=== PATIENT | female | born 1990 | race Caucasian/White ===

== ENCOUNTER 2017-06-09 04:08 | Emergency (ER) | payer BC ==
[2017-06-09 04:15] VITALS: RESP 18
[2017-06-09] MEDS ORDERED: AMOXIC-POT CLAV 875MG STARTER 2 EACH TABLET PO STA (04:52)
[2017-06-09] MEDS ORDERED: ACET/COD 300 MG/30 MG STARTER PACK 6 TAB BTL PO STA (04:53)
--- NOTE | 2017-06-09 04:54 | ED ---
ENT HPI - General Chief complaint: ENT Stated complaint: Sore throat Time Seen by Provider: 06/09/17 04:35 Source: patient Mode of arrival: ambulatory Limitations: no limitations - History of Present Illness Initial comments: This patient is a 26-year-old woman with history of about 3 days of sore throat. She states that it feels worse on the left. As aching, it has become severe, and is made worse when she attempts to swallow. She has not really found any relieving factors. Patient denies any associated symptoms such as cough, fever or chills. She states that the pain is now radiating towards her left ear. MD complaint: sore throat Onset/Timin -: days(s) Location: throat Severity: severe Quality: aching Consistency: constant Improves with: none Worsens with: swallowing Associated Symptoms: sore throat - Related Data Home Medications Medication Instructions Recorded Confirmed DULoxetine HCL [Cymbalta] 60 mg PO DAILY 06/09/17 06/09/17 Gabapentin [Neurontin] 400 mg PO DAILY PRN 06/09/17 06/09/17 LORazepam [Ativan] 1 mg PO Q8H PRN 06/09/17 06/09/17 Previous Rx's Medication Instructions Recorded Amoxicillin 875 mg PO Q12HR #14 tablet 06/09/17 Fluconazole [Diflucan] 150 mg PO ONCE #1 tab 06/09/17 Naproxen [Naprosyn] 500 mg PO Q12HR #20 tab 06/09/17 Allergies Allergy/AdvReac Type Severity Reaction Status Date / Time No Known Allergies Allergy Verified 06/09/17 16:10 Review of Systems ROS Statement: Those systems with pertinent positive or pertinent negative responses have been documented in the HPI. ROS Other: All systems not noted in ROS Statement are negative. Constitutional: Denies: fever, chills Eyes: Denies: eye pain, vision change ENT: Reports: ear pain, throat pain. Denies: hearing loss, congestion Respiratory: Denies: cough, dyspnea, wheezes Cardiovascular: Denies: palpitations Neurological: Denies: headache Past Medical History Past Medical History: Fibromyalgia History of Any Multi-Drug Resistant Organisms: None Reported Past Surgical History: Section Past Psychological History: Depression Smoking Status: Light tobacco smoker Past Alcohol Use History: None Reported Past Drug Use History: None Reported General Exam Limitations: no limitations General appearance: alert, in no apparent distress, obese Head exam: Present: atraumatic, normocephalic Eye exam: Present: normal appearance. Absent: scleral icterus, conjunctival injection ENT exam: Present: TM's normal bilaterally, normal external ear exam, other ( There is injection of the pharynx. There is some mild swelling to the left of the uvula. Uvula is midline without edema.) Neck exam: Present: normal inspection, tenderness, full ROM, lymphadenopathy. Absent: meningismus Respiratory exam: Present: normal lung sounds bilaterally. Absent: respiratory distress, wheezes, rales, rhonchi, stridor Cardiovascular Exam: Present: regular rate, normal rhythm, normal heart sounds. Absent: systolic murmur, diastolic murmur, rubs, gallop GI/Abdominal exam: Present: soft. Absent: distended, tenderness, guarding, rebound, mass Neurological exam: Present: alert Skin exam: Present: warm, dry, intact, normal color. Absent: rash Course Vital Signs 06/09/17 06/09/17 04:12 05:14 Temperature 98.1 F 97.7 F Pulse Rate 83 76 Respiratory 18 18 Rate Blood Pressure 157/73 133/78 O2 Sat by Pulse 99 96 Oximetry Medical Decision Making - Lab Data Lab Results 06/09/17 Range/Units 04:44 Group A Strep Rapid Negative (Negative) Disposition Clinical Impression: Peritonsillar abscess, Pharyngitis Disposition: HOME SELF-CARE Condition: Good Instructions: Pharyngitis (ED), Peritonsillar Abscess (ED) Prescriptions: Amoxicillin 875 mg PO Q12HR #14 tablet Fluconazole [Diflucan] 150 mg PO ONCE #1 tab Referrals: Devante Gee MD [Primary Care Provider] - 1-2 days Mega Grove MD [STAFF PHYSICIAN] - 1-2 days
[2017-06-09 05:15] VITALS: BP 133/78; PULSE 76; TEMP 97.7
== END 2017-06-09 05:14 | disposition home or self-care (01) ==
LOC: EC 04:08
DX: J36 Peritonsillar abscess (principal); H92.02 Otalgia, left ear; M79.7 Fibromyalgia; F32.9 Major depressive disorder, single episode, unspecified; E66.9 Obesity, unspecified; F17.200 Nicotine dependence, unspecified, uncomplicated; Z68.38 Body mass index [BMI] 38.0-38.9, adult
CPT/HCPCS: 87081; 87430; 99283

== ENCOUNTER 2017-06-09 15:49 | Emergency (ER) | payer BC ==
[2017-06-09 15:53] VITALS: BP 138/76; PULSE 105; RESP 18; TEMP 97.9
[2017-06-09] MEDS ORDERED: methylPREDNISolone SOD SUCCI 125 MG/2 ML VIAL IM STA (16:03)
[2017-06-09] MEDS ORDERED: KETOROLAC 60 MG/2 ML VIAL IM STA (16:03)
--- NOTE | 2017-06-09 16:08 | ED ---
General Adult HPI - General Chief complaint: ENT Stated complaint: Throat pain, abscess on tonsils Time Seen by Provider: 06/09/17 15:57 Source: patient, RN notes reviewed Mode of arrival: ambulatory Limitations: no limitations - History of Present Illness Initial comments: 26 yo female presents to the ER with cc of throat pain. Patient states she was started on amoxicillin and tylenol 3 for a peritonsillar abscess. Patient morning, it is not helping her with her pain. patient states that she just has pain to the toe. Patient states the fever and chills are gone. Patient states that her throat still hurts she denies any increased swelling. Patient was concerned due to her symptoms and increased pain so she thought that she should be evaluated.Patient denies any recent fever, chills, shortness of breath, chest pain, back pain, abdominal pain, nausea vomiting, numbness or tingling, dysuria or hematuria, constipation or diarrhea, headaches or visual changes, or any other current symptoms. - Related Data Home Medications Medication Instructions Recorded Confirmed DULoxetine HCL [Cymbalta] 60 mg PO DAILY 06/09/17 06/09/17 Gabapentin [Neurontin] 400 mg PO DAILY 06/09/17 06/09/17 LORazepam [Ativan] 0.5 mg PO 06/09/17 Previous Rx's Medication Instructions Recorded Amoxicillin 875 mg PO Q12HR #14 tablet 06/09/17 Fluconazole [Diflucan] 150 mg PO ONCE #1 tab 06/09/17 Naproxen [Naprosyn] 500 mg PO Q12HR #20 tab 06/09/17 Allergies Allergy/AdvReac Type Severity Reaction Status Date / Time No Known Allergies Allergy Verified 06/09/17 15:53 Review of Systems ROS Statement: Those systems with pertinent positive or pertinent negative responses have been documented in the HPI. ROS Other: All systems not noted in ROS Statement are negative. Past Medical History Past Medical History: Fibromyalgia History of Any Multi-Drug Resistant Organisms: None Reported Past Surgical History: Section Past Psychological History: Depression Smoking Status: Light tobacco smoker Past Alcohol Use History: None Reported Past Drug Use History: None Reported General Exam - General Exam Comments Initial Comments: General exam: Alert, active, comfortable in no apparent distress Head: Normocephalic Eyes: Normal reaction of pupils, equal size, normal range of extraocular motion Ears: normal external ear canals. Nose: clear with pink turbinates Throat: erythema to the left peritonsillar, noexudates with normal sized tonsils Neck: no masses, no nuchal rigidity Chest: no chest wall deformity Lungs: equal air entry with no crackles or wheeze CVS: S1 and S2 normal with no audible mumurs, regular rhythm Abdomen: no hepatosplenomegaly, normal bowel sounds, no guarding or rigidity Spine: no scoliosis or deformity Skin: no rashes Neurological: No focal deficits, tone is normal in all 4 extremities Limitations: no limitations Course Vital Signs 06/09/17 15:51 Temperature 97.9 F Pulse Rate 105 H Respiratory 18 Rate Blood Pressure 138/76 O2 Sat by Pulse 100 Oximetry Medical Decision Making - Medical Decision Making 26-year-old female presents for left peritonsillar abscess. This time we did give her dose of steroids as well as anti-inflammatories. We'll start her on naproxen for home. We did discuss continued follow-up with Dr. felipe parameters all patient's questions. She stated that she understood and she plan. All questions have been answered. She will be discharged. Disposition Clinical Impression: Peritonsillar abscess Disposition: HOME SELF-CARE Condition: Stable Instructions: Pharyngitis (ED) Additional Instructions: Please use medication as discussed. Please follow up with family doctor if symptoms have not improved over the next two days. Please return to the emergency room if your symptoms increase or worsen or for any other concerns. Prescriptions: Naproxen [Naprosyn] 500 mg PO Q12HR #20 tab Referrals: Devante Gee MD [Primary Care Provider] - 1-2 days Time of Disposition: 16:07
== END 2017-06-09 16:18 | disposition home or self-care (01) ==
LOC: EC 15:49
DX: J36 Peritonsillar abscess (principal); M79.7 Fibromyalgia; F32.9 Major depressive disorder, single episode, unspecified; F17.200 Nicotine dependence, unspecified, uncomplicated; Z79.899 Other long term (current) drug therapy
CPT/HCPCS: 99282; 96372 ×2; J2930; J1885

== ENCOUNTER → 2017-06-10 | Outpatient (CLI) | payer BC ==
--- NOTE | 2017-06-10 20:06 | CT ---
EXAMINATION TYPE: CT soft tissue neck w con DATE OF EXAM: 06/10/2017 HISTORY: left side abscess/swelling COMPARISON: NONE CT DLP: 527.5 mGycm. Automated Exposure Control for Dose Reduction was Utilized. TECHNIQUE: CT scan of the neck is performed with IV Contrast, patient injected with 100 mL of Omnipa que 300, axial images are obtained, coronal and sagittal reformatted images are reviewed. FINDINGS: Airway: Within the lateral aspect of the left parapharyngeal tonsil there is a 1.6 x 1.7 cm lesion wi th a thick rim that is centrally low attenuated with Hounsfield units suggestive of complex fluid and phlegmonous debris. There is mild impression upon the airway with narrowing of the pharynx at this l evel. Airway posterior to this is patent but narrowed measuring 8 mm. Parotid/submandibular glands: No gross abnormality seen. Carotid/Vascular Structures: No evidence of stenosis. Osseous Structures: Osseous structures are intact. Other: Adenopathy is seen within the bilateral cervical chains with nodes measuring up to 1.2 cm on t he left and 1.0 cm on the right. No fluid is seen within the prevertebral space. IMPRESSION: 1. 1.6 x 1.7 cm left peritonsillar abscess containing small amounts of fluid and predominantly phlegm onous changes, narrowing the airway although the airway remains patent. 2. Bilateral cervical chain adenopathy, left greater than right that is likely reactive. Ordering physician's office was closed and no on-call number was provided. The ordering physician coral l be contacted as soon as the office opens on 06/11/2017.
== END | disposition home or self-care (01) ==
LOC: RADCTMAIN 15:36
PROVIDERS: ATTEND Otolaryngology
DX: J36 Peritonsillar abscess (principal)
CPT/HCPCS: 70491; Q9967

== ENCOUNTER 2017-06-11 14:51 | Emergency (ER) | payer BC ==
[2017-06-11] MEDS ORDERED: HYDROmorphone 1 MG/ML 1 ML SYRINGE IVP STA (15:05)
[2017-06-11 15:21] VITALS: BP 139/92; PULSE 84; RESP 18; TEMP 99.3
--- NOTE | 2017-06-12 18:24 | OP ---
OPERATIVE REPORT Date of Surgery: DATE OF SURGERY: 06/11/2017 PREOPERATIVE DIAGNOSIS: Left peritonsillar abscess. POSTOPERATIVE DIAGNOSIS: Left peritonsillar abscess. ANESTHESIA: Local with Hurricaine spray. OPERATIVE PROCEDURE: Incision and drainage of left peritonsillar abscess using a 10 mL syringe and an 18- gauge needle. SURGEON: Dr. Grove. COMPLICATIONS: None. ESTIMATED BLOOD LOSS: Less than 5 mL. OPERATIVE PROCEDURE: The patient was placed on the patient bed in the emergency room in the sitting position. Next, the patient's posterior pharynx was generously sprayed with Hurricaine spray to achieve topical anesthesia. Next, using the tongue depressor to obtain maximum view of the area, inspection revealed that there was minimal soft tissue swelling of the left peritonsillar area. Therefore, using the 10 mL syringe initially with an 18-gauge needle and subsequently with a 21-gauge needle attached to it, the needle was inserted through the mucous membrane into the peritonsillar tissue in an area group home between the uvula and the rear molars in the usual and customary fashion. Multiple punctures were carried out and a total of approximately 3 mL of bloody purulent material was obtained. It is to be noted on the patient's CT scan that the abscess pocket was noted to be small. After inserting the syringe and withdrawing the plunger of the syringe as the needle was withdrawn from the soft tissue at six different sites, the procedure was terminated. There were no intraoperative complications. The patient tolerated procedure well. The patient will be given 1 g of Rocephin intravenously prior to her discharge from the emergency room. She is currently on Augmentin 875 mg tablets p.o. b.i.d., #20 and she will continue taking this. I will see her on a followup visit in my office next week after . MMODL / IJN: [id number] /
--- NOTE | 2017-06-13 02:49 | CDI ---
Documentation Clarification OP Dear Sulaiman Pemberton Please do addendum to ED report for missing whole ED notes. Thank you, Rah Soto Ticket Maker If you have any questions, please contact [employer] at [phone] [facility]
== END 2017-06-11 16:00 | disposition home or self-care (01) ==
LOC: EC 14:51 → EDSTATUS 14:57 → EC 16:00
DX: J36 Peritonsillar abscess (principal)
CPT/HCPCS: 42700; 96365; J0696; J1170

== ENCOUNTER → 2017-07-08 | Outpatient (CLI) | payer BC ==
--- NOTE | 2017-07-08 16:57 | CT ---
EXAMINATION TYPE: CT soft tissue neck w con DATE OF EXAM: 07/08/2017 4:48 PM COMPARISON: 06/10/2017 HISTORY: Follow-up left peritonsillar abscess. CT DLP: 475.60 mGycm Automated exposure control for dose reduction was used. CONTRAST: CT scan of the neck is performed following with IV Contrast, patient injected with 100 mL of Omnipaqu e 300. Axial images are obtained, coronal and sagittal reformatted images are reviewed. FINDINGS: There is normal branching pattern of the great vessels on the aortic arch. I see no mediastinal adeno leonardo. Thyroid gland is symmetric. There is normal contrast opacification of the carotid arteries and jugula r veins. Epiglottis appears normal. There is mild bilateral enlargement of the tonsils. There is a sm all mucus retention cyst in the sphenoid sinus. I see no focal bone destruction. Subglottic trachea a ppears normal. There is no evidence of a pharyngeal mass. IMPRESSION: Mild hypertrophy of the tonsils. There is clearing of the enlarged hypodense area in the left tonsil compared to last CT scan. I do not see evidence of an abscess or phlegmon.
== END ==
LOC: RADCTMAIN 16:27
PROVIDERS: ATTEND Otolaryngology
DX: J35.8 Other chronic diseases of tonsils and adenoids (principal)
CPT/HCPCS: 70491; Q9967

== ENCOUNTER → 2017-11-06 | Outpatient (CLI) | payer OTHER ==
--- NOTE | 2017-11-06 17:00 | XR ---
EXAMINATION TYPE: XR chest 2V DATE OF EXAM: 11/06/2017 COMPARISON: NONE HISTORY: Chest pain TECHNIQUE: Frontal and lateral views of the chest are obtained. FINDINGS: There is no focal air space opacity. No evidence for pneumothorax. No pleural effusion. The cardiac silhouette size is within normal limits. The osseous structures are grossly intact. IMPRESSION: 1. No acute cardiopulmonary process.
== END | disposition home or self-care (01) ==
LOC: RADXRMAIN 15:57
PROVIDERS: ATTEND Family Medicine
DX: R05 Cough (principal)
CPT/HCPCS: 71046

== ENCOUNTER 2018-01-02 09:31 | Day surgery (SDC) | payer OTHER ==
[2017-12-31 10:39] VITALS: BMI 40.3
[~2018-01-02 09:31] MED LIST: LACTATED RINGERS 1,000 ML IV SCH
[2018-01-02 10:30] VITALS: RESP 18; TEMP 97.6
[2018-01-02] MEDS ORDERED: LIDOCAINE 1% 20 ML VIAL (10MG/ML) FOR IV START INTRADERMA ONE (10:31)
[2018-01-02] MEDS ORDERED: PROPOFOL 10 MG/ML 20 ML VIAL IV ONE (10:42)
[2018-01-02] MEDS ORDERED: LIDOCAINE 1% INJ 10MG/ML (20 ML MDV) ONE (10:42)
[2018-01-02] MEDS ORDERED: fentaNYL (PF) 50 MCG/ML 2 ML AMP ONE (10:42)
--- NOTE | 2018-01-02 10:47 | P.GSHP ---
History of Present Illness H&P Date: 01/02/18 Chief Complaint: GERD This a 18-year-old female for from Dr. Jose Sánchez. Patient presents today for EGD. She's had issues with GERD. Past Medical History Past Medical History: Fibromyalgia, GERD/Reflux, Sleep Apnea/CPAP/BIPAP Additional Past Medical History / Comment(s): no cpap used, carpal tunnel [place] wrists History of Any Multi-Drug Resistant Organisms: None Reported Past Surgical History: Section, Orthopedic Surgery Additional Past Surgical History / Comment(s): tendon surgery left foot Past Anesthesia/Blood Transfusion Reactions: No Reported Reaction Smoking Status: Current every day smoker - Past Family History Mother Family Medical History: No Reported History Medications and Allergies Home Medications Medication Instructions Recorded Confirmed Type DULoxetine HCL [Cymbalta] 60 mg PO DAILY 06/09/17 01/02/18 History ALPRAZolam [Xanax] 0.25 mg PO DAILY PRN 12/31/17 01/02/18 History Hydrocodone/Acetaminophen [[place] 1 tab PO BID 12/31/17 01/02/18 History 7.5-325] Allergies Allergy/AdvReac Type Severity Reaction Status Date / Time No Known Allergies Allergy Verified 01/02/18 10:28 Surgical - Exam Vital Signs Temp Pulse Resp BP Pulse Ox 97.6 F 75 18 133/68 98 01/02/18 10:29 01/02/18 10:29 01/02/18 10:29 01/02/18 10:29 01/02/18 10:29 - General well developed, no distress - Eyes PERRL - ENT normal pinna - Neck no masses - Respiratory normal expansion - Cardiovascular Rhythm: regular - Abdomen Abdomen: soft, non tender Assessment and Plan Assessment: GERD. We'll perform EGD.
--- NOTE | 2018-01-02 10:53 | P.OP ---
Date of Procedure: 01/02/18 Preoperative Diagnosis: GERD Postoperative Diagnosis: Antral gastritis No N [place] hernia Esophagitis Procedure(s) Performed: EGD Anesthesia: MAC Surgeon: Alejandro Desouza Pathology: other (Antrum, esophagus) Condition: stable Disposition: PACU Description of Procedure: Patient's placed on the endoscopy table in the lateral position. She received IV sedation. The gastroscope placed oropharynx passed in the esophagus there was linear erosions noted at the GE junction. The scope was then placed and stomach and through the pylorus. The first and second portion of the duodenum appeared normal. Scope was then brought back the antrum and this appeared mildly inflamed. A biopsies performed. The scope was then retroflexed and the remainder of the stomach appeared normal. There was no hiatal hernia. The GE junction was at 40 cm. The distal esophagus appeared inflamed and a biopsies performed. The proximal esophagus appeared normal. Scope was withdrawn for patient.
[2018-01-02 11:14] VITALS: BP 120/79; PULSE 66
== END 2018-01-02 11:25 | disposition home or self-care (01) ==
LOC: ORWHC2ENDO 09:31
PROVIDERS: ATTEND Surgery
DX: K21.0 Gastro-esophageal reflux disease with esophagitis (principal); K29.50 Unspecified chronic gastritis without bleeding; F32.9 Major depressive disorder, single episode, unspecified; F41.9 Anxiety disorder, unspecified; G47.30 Sleep apnea, unspecified; F17.200 Nicotine dependence, unspecified, uncomplicated; M79.7 Fibromyalgia; Z79.899 Other long term (current) drug therapy; Z79.891 Long term (current) use of opiate analgesic
CPT/HCPCS: 81025; 88305; 43239; J2001; J3010; J2704

== ENCOUNTER → 2019-10-19 | Outpatient (CLI) | payer OTHER ==
--- NOTE | 2019-10-19 11:05 | XR ---
EXAMINATION TYPE: XR chest 2V DATE OF EXAM: 10/19/2019 COMPARISON: 11/06/2017 TECHNIQUE: PA and lateral views submitted. HISTORY: Cough FINDINGS: The lungs are clear and there is no pneumothorax, pleural effusion, or focal pneumonia. No overt fa ilure. Biapical pleural thickening. Hypertrophic change of the spine. Chronic appearing mild wedge de formity in the midthoracic spine stable from prior exam. IMPRESSION: 1. No acute process.
== END | disposition home or self-care (01) ==
LOC: RADXRMAIN 10:42
PROVIDERS: ATTEND Family Medicine
DX: R05 Cough (principal)
CPT/HCPCS: 71046

== ENCOUNTER → 2019-10-21 | Outpatient (CLI) | payer OTHER ==
--- NOTE | 2019-10-21 09:09 | CT ---
EXAMINATION TYPE: CT abdomen pelvis wo con DATE OF EXAM: 10/21/2019 HISTORY: Abdominal and pelvic pain not further specified per order. Burning sharp pain into lower abd omen just under belly button for almost one week per patient. CT DLP: 857.9 mGycm. Automated Exposure Control for Dose Reduction was Utilized. TECHNIQUE: CT scan of the abdomen and pelvis is performed without oral or IV contrast. COMPARISON: NONE FINDINGS: Within the limitations of a non-contrast study, the following observations are made. LUNG BASES: No significant abnormality is appreciated. LIVER/GB: Somewhat contracted gallbladder incidentally noted. PANCREAS: No significant abnormality is seen. SPLEEN: No significant abnormality is seen. ADRENALS: No significant abnormality is seen. KIDNEYS: Bilateral nephrolithiasis. There are 3-4 small calculi scattered throughout the right kidne y measuring up to 5-6 mm long axis coronal image 55. There are 2 calculi scattered throughout the lef t kidney with largest mid to lower pole level measuring 4 x 5 mm more rounded in shape and coronal im age 52. No hydronephrosis or obstructing ureteral calculi. No intraluminal calculi poorly distended b ladder. BOWEL: Slightly suboptimal evaluation of bowel without enteric contrast. No suspicious small or large bowel dilatation is present. Appendix appears within normal limits seen extending medially coronal i mage 44. GENITAL ORGANS: Anteverted uterus. Trace free fluid pelvic cul-de-sac axial image 74 is nonspecific. Both ovaries normal in size right slightly larger on axial image 74 and the adnexa. LYMPH NODES: No greater than 1cm abdominal or pelvic lymph nodes are appreciated. OSSEOUS STRUCTURES: No significant abnormality is seen. Other: Small to tiny umbilical hernia contains fat sagittal image 60 and axial image 49. There is pe rhaps small degree of fat stranding along superior aspect seen best on sagittal images 59 through 61. No additional suspicious ventral wall hernia. IMPRESSION: 1. Bilateral renal calculi without hydronephrosis or obstructing ureteral calculi seen bilaterally. 2. Small to tiny umbilical hernia containing fat with perhaps mild fat stranding could reflect inflam mation or fatty ischemia and may cause patient's symptoms.
== END | disposition home or self-care (01) ==
LOC: RADCTMAIN 08:30
PROVIDERS: ATTEND Family Medicine
DX: N20.0 Calculus of kidney (principal); K42.9 Umbilical hernia without obstruction or gangrene
CPT/HCPCS: 74176

== ENCOUNTER 2020-12-24 12:36 | Emergency (ER) | payer OTHER ==
[2020-12-24 12:41] VITALS: BP 125/81; PULSE 105; RESP 16; TEMP 98
[2020-12-24] MEDS ORDERED: IBUPROFEN 600 MG TAB PO STA (12:48)
--- NOTE | 2020-12-24 12:57 | ED ---
General Adult HPI - General Chief complaint: Extremity Injury, Lower Stated complaint: L ankle injury Time Seen by Provider: 12/24/20 12:43 Source: patient, RN notes reviewed Mode of arrival: ambulatory Limitations: no limitations - History of Present Illness Initial comments: 30-year-old female presents to the emergency room for a chief complaint of left ankle pain. Patient states that yesterday she got new shoes that have an thicker sole than normal. Sates that she was walking down her stairs and the sole got caught on the edge of the stair. Patient fell down 3 stairs and injured her left ankle. States she is able to walk on it but it is painful. States it feels better with the shoe on because it provide support. Patient denies any pain in the foot. Patient denies hitting her head. Denies any back pain or neck pain. Denies taking blood thinners. Denies any other injuries.Patient has no other complaints at this time including shortness of breath, chest pain, abdominal pain, nausea or vomiting, headache, or visual changes. - Related Data Home Medications Medication Instructions Recorded Confirmed DULoxetine HCL [Cymbalta] 60 mg PO DAILY 06/09/17 01/02/18 ALPRAZolam [Xanax] 0.25 mg PO DAILY PRN 12/31/17 01/02/18 Hydrocodone/Acetaminophen [[place] 1 tab PO BID 12/31/17 01/02/18 7.5-325] Allergies Allergy/AdvReac Type Severity Reaction Status Date / Time No Known Allergies Allergy Verified 12/24/20 12:41 Review of Systems ROS Statement: Those systems with pertinent positive or pertinent negative responses have been documented in the HPI. ROS Other: All systems not noted in ROS Statement are negative. Past Medical History Past Medical History: Fibromyalgia, GERD/Reflux, Sleep Apnea/CPAP/BIPAP Additional Past Medical History / Comment(s): no cpap used, carpal tunnel [place] wrists History of Any Multi-Drug Resistant Organisms: None Reported Past Surgical History: Section, Orthopedic Surgery Additional Past Surgical History / Comment(s): tendon surgery left foot Past Anesthesia/Blood Transfusion Reactions: No Reported Reaction Past Psychological History: ADD/ADHD, Anxiety, Bipolar, Depression Smoking Status: Current every day smoker, Vaper Past Alcohol Use History: Rare Past Drug Use History: None Reported - Past Family History Mother Family Medical History: No Reported History General Exam Limitations: no limitations General appearance: alert, in no apparent distress Head exam: Present: atraumatic, normocephalic, normal inspection Eye exam: Present: normal appearance, PERRL, EOMI. Absent: scleral icterus, conjunctival injection, periorbital swelling ENT exam: Present: normal exam, mucous membranes moist Neck exam: Present: normal inspection. Absent: tenderness, meningismus, lymphadenopathy Respiratory exam: Present: normal lung sounds bilaterally. Absent: respiratory distress, wheezes, rales, rhonchi, stridor Cardiovascular Exam: Present: regular rate, normal rhythm, normal heart sounds. Absent: systolic murmur, diastolic murmur, rubs, gallop, clicks GI/Abdominal exam: Present: soft, normal bowel sounds. Absent: distended, tenderness, guarding, rebound, rigid Extremities exam: Present: tenderness (Tenderness to the lateral malleolus. No tenderness to the medial malleolus, fifth metatarsal, or navicular. Tenderness in the rest of the foot.), normal capillary refill (Capillary refill is 2 seconds, DP pulse 2+ left lower extremity), joint swelling (Edema noted of the lateral malleolus of the left ankle), other (Sensation intact left lower extremity). Absent: full ROM (Plantar and dorsi flexion intact in the left ankle however limited secondary to pain.), pedal edema, calf tenderness Course Vital Signs 12/24/20 12:39 Temperature 98 F Pulse Rate 105 H Respiratory 16 Rate Blood Pressure 125/81 O2 Sat by Pulse 97 Oximetry Procedures - Orthopedic Splinting/Casting Injury #1 Side: left Lower Extremity Immobilizer: [employer] Medical Decision Making - Medical Decision Making X-ray of the left foot and ankle showed no acute osseous abnormality however with the swelling, consider underlying ligamentous injury. Patient was placed in an Aircast. She was referred to orthopedics. Recommended Motrin and Tylenol as well as rice therapy. Disposition Clinical Impression: Ankle pain, left Disposition: HOME SELF-CARE Condition: Good Instructions (If sedation given, give patient instructions): Ankle Sprain (ED) Additional Instructions: Please take Motrin and Tylenol for pain. Please rest ice and elevate the left leg. Use brace as needed. Follow-up with orthopedics by calling tomorrow for an appointment. Return to the emergency room for any worsening symptoms. Is patient prescribed a controlled substance at d/c from ED?: No Referrals: Jose Marcos MD [Primary Care Provider] - 1-2 days Robe Rocha DO [Doctor of Osteopathic Medicine] - 1-2 days Time of Disposition: 13:44
--- NOTE | 2020-12-24 13:32 | XR ---
EXAMINATION TYPE: XR ankle complete 3 views LT, XR foot complete 3 views LT DATE OF EXAM: 12/24/2020 COMPARISON: NONE HISTORY: 30-year-old female with pain after fall FINDINGS: Ankle: Marked lateral and anterior soft tissue swelling. Anterior tibiotalar joint effusion is also noted. N o acute fracture, subluxation, or dislocation. Talar dome is intact. Subtalar joint align appears ali gned. Foot: Os peroneum. No acute fracture, subluxation, or dislocation. IMPRESSION (ankle and foot): Marked lateral and anterior soft tissue swelling at the ankle and underlying joint effusion. Consider underlying ligamentous injury. No acute osseous abnormality seen.
== END 2020-12-24 14:04 | disposition home or self-care (01) ==
LOC: EC 12:36 → SUPCPDRO 12:36 → EC 14:04
DX: S93.402A Sprain of unspecified ligament of left ankle, initial encounter (principal); F41.9 Anxiety disorder, unspecified; F31.9 Bipolar disorder, unspecified; F90.9 Attention-deficit hyperactivity disorder, unspecified type; F17.200 Nicotine dependence, unspecified, uncomplicated; G47.33 Obstructive sleep apnea (adult) (pediatric); Z99.89 Dependence on other enabling machines and devices; Z79.899 Other long term (current) drug therapy; W10.9XXA Fall (on) (from) unspecified stairs and steps, initial encounter
CPT/HCPCS: 29515; 99283

== ENCOUNTER 2022-04-16 10:18 | Inpatient (IN) | payer OTHER ==
[2022-04-16] MEDS ORDERED: CITRIC ACID-SODIUM CITRATE 15 ML CUP PO ONE (10:56)
[2022-04-16] MEDS: LACTATED RINGERS 1,000 ML IV SCH ×3 (11:00→22:39)
[2022-04-16 11:20] LABS: Basophils % (A) 0 %; Eosinophils % (A) 0 %; HGB 11.8 gm/dL (11.4-16.0); Lymphocytes # (A) 1.7 k/uL (1.0-4.8); Lymphocytes % (A) 22 %; MCHC 34.8 g/dL (31.0-37.0); MCV 86.2 fL (80.0-100.0); Mean Platelet Volume 7.6; Monocytes # (A) 0.4 k/uL (0-1.0); Monocytes % (A) 6 %; Neutrophils # (A) 5.4 k/uL (1.3-7.7); Neutrophils % (A) 70 %; Platelet Count 354 k/uL (150-450); RBC 3.94 m/uL (3.80-5.40); RDW 14.3 % (11.5-15.5); WBC 7.7 k/uL (3.8-10.6)
[2022-04-16] MEDS ORDERED: ePHEDrine 50 MG/ML 1 ML VIAL ONE (12:04)
[2022-04-16] MEDS ORDERED: NALBUPHINE 10 MG/ML (1 ML AMP) ONE (12:04)
[2022-04-16] MEDS ORDERED: ONDANSETRON 4 MG/2 ML VIAL ONE (12:04)
[2022-04-16] MEDS ORDERED: KETOROLAC 15 MG/ML 1 ML VIAL ONE (12:04)
[2022-04-16] MEDS ORDERED: OXYTOCIN 30 UNITS/500 ML NS BAG IV ONE (12:04)
[2022-04-16] MEDS ORDERED: MORPHINE SULFATE (PF) 0.3 MG/0.3 ML SYR ONE (12:04)
--- NOTE | 2022-04-16 12:07 | P.HPOB ---
History of Present Illness H&P Date: 04/16/22 Chief Complaint: Here for elective section, repeat. Declining . This is a 31-year-old female 4 para 2012 EDC 04/22/2022 at 39 and one sevenths weeks' gestation. Patient is presenting today for repeat section, previous 2016, declining . She states fetus is been active throughout the . She denies vaginal bleeding, fluid leakage, or any complaints this morning. ALLERGIES amoxicillin to which reports additional infections. Family history is essentially negative. Reproductive history section 9 lbs. 4 oz. male 2016, low transverse. Social history patient is a former tobacco smoker, denies alcohol tobacco or drug use with this . She is employed in the housekeeping industry. Past medical history is significant for anxiety and depression, carpal tunnel syndrome, fibromyalgia, sciatic nerve pain. Current medications famotidine 20 mg tablet daily, [place] as needed for pain throughout the , and Zyrtec 10 mg tablets when necessary, vitamin daily. On exam patient is 5 foot 4 inches, 247 pounds, blood pressure 125/71. General physical exam is within normal limits. heart rate is consistent with reactive NST. Fundus is obviously gravid, fundal height consistent with full term . Cervix is long thick and closed. Chest is clear in all moon. Impression: 39 and one sevenths week intrauterine , previous , here for repeat section, declining option for , declining tubal ligation. Plan: Antibiotic prophylaxis. All questions answered. For repeat low transverse section at this time. Review of Systems Constitutional: Reports as per HPI Past Medical History Past Medical History: Fibromyalgia, GERD/Reflux, Sleep Apnea/CPAP/BIPAP Additional Past Medical History / Comment(s): no cpap used, carpal tunnel [place] wrists History of Any Multi-Drug Resistant Organisms: None Reported Past Surgical History: Section, Orthopedic Surgery Additional Past Surgical History / Comment(s): tendon surgery left foot Past Anesthesia/Blood Transfusion Reactions: No Reported Reaction Past Psychological History: ADD/ADHD, Anxiety, Bipolar, Depression Smoking Status: Former smoker, Vaper Past Alcohol Use History: Rare Additional Past Alcohol Use History / Comment(s): smoked 1/2 PPD for 15 yrs Past Drug Use History: None Reported - Past Family History Mother Family Medical History: No Reported History Medications and Allergies Home Medications Medication Instructions Recorded Confirmed Type Acetaminophen [Tylenol Extra 500 mg PO DIRECTED 04/16/22 04/16/22 History Strength] Famotidine 20 mg PO BID 04/16/22 04/16/22 History Pnv,Calcium 72/Iron/Folic Acid 1 each PO DAILY 04/16/22 04/16/22 History [Westab Plus Tablet] Allergies Allergy/AdvReac Type Severity Reaction Status Date / Time amoxicillin Allergy Unknown Verified 04/16/22 10:53 Exam Vital Signs Temp Pulse Resp BP Pulse Ox 04/16/22 10:52 97.6 F 93 17 125/71 97 Intake and Output 04/15/22 04/16/22 04/16/22 22:59 06:59 14:59 Other: # Voids 1 Weight 112.037 kg See dictation under HPI please Results Result Diagrams: 04/16/22 10:45 Assessment and Plan Assessment: 39 and one sevenths weeks intrauterine , previous , declining option for . Here for repeat low transverse section. Plan: Antibiotic prophylaxis given. For repeat low transverse section at this time. All questions answered. Time with Patient: Less than 30
[2022-04-16] MEDS ORDERED: diphenhydrAMINE 50 MG/ML 1 ML VIAL IVP PRN ×2 (12:59)
[2022-04-16] MEDS ORDERED: MEASLES-MUMPS-RUBELLA VACC/PF 12,500 UNIT/0.5 ML VIAL SQ ONE (12:59)
[2022-04-16] MEDS ORDERED: ONDANSETRON 4 MG/2 ML VIAL IVP PRN (12:59)
[2022-04-16] MEDS ORDERED: METOCLOPRAMIDE 5 MG/ML 2 ML VIAL IVP PRN (12:59)
[2022-04-16] MEDS ORDERED: ZOLPIDEM 5 MG TAB PO PRN (12:59)
[2022-04-16] MEDS ORDERED: NALOXONE 0.4 MG/ML 1 ML VIAL IV PRN (12:59)
[2022-04-16] MEDS ORDERED: SIMETHICONE 80 MG CHEWABLE PO PRN (12:59)
[2022-04-16] MEDS ORDERED: diphenhydrAMINE 50 MG CAP PO PRN (12:59)
[2022-04-16] MEDS ORDERED: diphenhydrAMINE 25 MG CAP PO PRN (12:59)
--- NOTE | 2022-04-16 13:00 | P.OP ---
Date of Procedure: 04/16/22 Preoperative Diagnosis: 39 and one sevenths weeks, previous , declining Postoperative Diagnosis: Same, liveborn male infant Procedure(s) Performed: Repeat low transverse section Anesthesia: spinal Surgeon: Chari Mathews Route Service Representative #1: Isrrael Cade Estimated Blood Loss (ml): 673 IV fluids (ml): 400 Urine output (ml): 100 Pathology: none sent Condition: stable Disposition: PACU Description of Procedure: Patient is brought to the operating suite where a spinal with Duramorph is given without difficulty per the anesthesia team. She's placed in the dorsal supine position with left lateral uterine displacement. Antibiotics are given. Reynolds catheter to direct drainage. The appropriate timeout is performed to assure proper patient and procedural identification. The abdomen is prepped and draped in usual sterile fashion. The analgesia is checked and noted to be adequate. A repeat low transverse skin incision is made, carried down through the subcutaneous tissue. Fascia is isolated, scored, extended bilaterally with curved Gong scissors. Peritoneum is next identified and incised, there is no bowel or bladder involvement. Bladder flap is created and at all times the bladder is Well from the operative field to avoid bladder and/or ureteral injury. A low transverse uterine incision is made in this is carried out with blunt dissection. 's head is delivered in the left occiput transverse position. There is no nuchal cord noted. The oropharynx, nasopharynx, and external nares are bulb suctioned. Patient is officially delivered of a liveborn male infant. The umbilical cord is doubly clamped and ligated, he is handed to waiting nurses for evaluation where scores of 8 and 9 at one and 5 minutes respectively are given. The placenta is delivered manually, it is inspected and noted to be intact with trivascular cord. At this time the uterus is externalized and massaged. Oxytocin is given. The uterus is swept clean with a sterile sponge to avoid any retained products of conception. The uterus is closed in a two-step fashion, first layer running locking, second layer imbricated, both with 0 Vicryl suture. The Reynolds is noted to be draining clear urine. The bladder is allowed to close by secondary intention. Bilateral gutters are inspected and cleaned. Bilateral tubes and ovaries appear normal. The uterus is gently placed back into the abdominal cavity. Uterine incision is slightly oozy, therefore the surgical "'s no" is placed on the uterine incision for excellent immediate complete hemostasis. The fascia is closed in a running stitch of 0 Vicryl with over ligation in the midline. Subcutaneous tissue is irrigated, inspected, clean and dry. It is reapproximated with 3-0 Vicryl in a running stitch. 4-0 undyed Mastisol is used in a subcuticular closure for final skin closure. Uterus is massaged for a small amount of blood. Steri-Strips and Mastisol along with a dressing are applied to the wound. All sponge needle and enhancement counts are correct. Patient is brought back to the recovery room in very good condition with stable vital signs including blood pressure 114/51, pulse 78, clear urine in the Reynolds tube, 100 mL's. Patient is requesting circumcision for her infant son.
[2022-04-16] MEDS: MORPHINE SULFATE 4 MG/ML SYRINGE IVP PRN ×3 (14:37→22:36)
[2022-04-16] MEDS: ACETAMINOPHEN TAB 500 MG TAB PO SCH (17:16)
[2022-04-16] MEDS: IBUPROFEN 600 MG TAB PO SCH (19:52)
[2022-04-16] MEDS: SENNOSIDES-DOCUSATE SODIUM 1 EACH TAB PO SCH (19:52)
[2022-04-17] MEDS: ACETAMINOPHEN TAB 500 MG TAB PO SCH ×5 (01:40→20:10)
[2022-04-17] MEDS: MORPHINE SULFATE 4 MG/ML SYRINGE IVP PRN ×2 (03:05→08:29)
[2022-04-17 07:09] LABS: Basophils % (A) 0 %; Eosinophils % (A) 0 %; HGB 10.4 gm/dL (11.4-16.0); Lymphocytes # (A) 1.5 k/uL (1.0-4.8); Lymphocytes % (A) 20 %; MCH 30.4 pg (25.0-35.0); MCHC 34.7 g/dL (31.0-37.0); MCV 87.5 fL (80.0-100.0); Mean Platelet Volume 7.5; Monocytes # (A) 0.4 k/uL (0-1.0); Monocytes % (A) 5 %; Neutrophils # (A) 5.6 k/uL (1.3-7.7); Neutrophils % (A) 73 %; Platelet Count 302 k/uL (150-450); RBC 3.43 m/uL (3.80-5.40); RDW 14.3 % (11.5-15.5); WBC 7.7 k/uL (3.8-10.6)
--- NOTE | 2022-04-17 07:56 | P.PN ---
Progress Note - Text 04/17/22 640am 81-year-old female status post with spinal Duramorph. Patient did not have pain relief from spinal Duramorph and needed IV morphine for breakthrough pain she is doing well no complains of nausea vomiting or pruritus
--- NOTE | 2022-04-17 08:07 | P.PN ---
Subjective Progress Note Date: 04/17/22 Principal diagnosis: day #1 Slept well. Positive flatus. No complaints. Objective - Vital Signs Vital signs: Vital Signs Temp 98.0 F 04/17/22 03:15 Pulse 68 04/17/22 03:15 Resp 17 04/17/22 03:15 BP 108/66 04/17/22 03:15 Pulse Ox 98 04/17/22 03:15 FiO2 Intake & Output 04/16/22 04/17/22 04/17/22 18:59 06:59 18:59 Output Total 2496 1700 Balance -2496 -1700 Weight 112.037 kg Output: Urine 350 1700 Emesis 673 Estimated Blood Loss 673 Output, Quantitative 800 Blood Loss Other: Voiding Method Indwelling Catheter # Voids 1 - Constitutional General appearance: Present: average body habitus, cooperative - EENT Eyes: Present: PERRLA ENT: Present: hearing grossly normal - Respiratory Respiratory: bilateral: CTA - Cardiovascular Rhythm: regular - Gastrointestinal General gastrointestinal: Present: normal bowel sounds - Integumentary Integumentary Comment(s): Incision clean and dry, intact, Steri-Strips applied. Fundus firm, midline, symmetric, 18 week size, minimally tender. - Musculoskeletal Musculoskeletal: Present: gait normal - Psychiatric Psychiatric: Present: A&O x's 3, appropriate affect, intact judgment & insight - Labs CBC & Chem 7: 04/17/22 05:43 Labs: Abnormal Lab Results - Last 24 Hours (Table) 04/17/22 Range/Units 05:43 RBC 3.43 L (3.80-5.40) m/uL Hgb 10.4 L (11.4-16.0) gm/dL Hct 30.0 L (34.0-46.0) % Assessment and Plan Assessment: Doing well first postoperative day Plan: Continue postoperative care. Circumcision tomorrow. Likely discharge home tomorrow. Time with Patient: Less than 30
[2022-04-17] MEDS: SENNOSIDES-DOCUSATE SODIUM 1 EACH TAB PO SCH ×2 (08:29→20:10)
[2022-04-17] MEDS: IBUPROFEN 600 MG TAB PO SCH ×4 (10:32→22:39)
[2022-04-17] MEDS ORDERED: HYDROcodone/APAP 5-325MG 1 EACH TAB PO PRN (11:29)
[2022-04-17] MEDS ORDERED: BENZOCAINE/MENTHOL LOZENG 1 EACH LOZENGE MUCOUS MEM PRN (17:18)
[2022-04-17] MEDS: HYDROcodone/APAP 5-325MG 1 EACH TAB PO PRN (18:01)
[2022-04-17] MEDS: LACTATED RINGERS 1,000 ML IV SCH ×2 (19:41)
[2022-04-18] MEDS: HYDROcodone/APAP 5-325MG 1 EACH TAB PO PRN ×2 (01:27→07:29)
[2022-04-18] MEDS: ACETAMINOPHEN TAB 500 MG TAB PO SCH ×2 (04:22→14:17)
[2022-04-18] MEDS: IBUPROFEN 600 MG TAB PO SCH ×2 (04:33→10:31)
--- NOTE | 2022-04-18 08:19 | P.DS ---
Providers Date of admission: 04/16/22 10:18 Expected date of discharge: 04/18/22 Attending physician: Chari Mathews Primary care physician: Stated None Hospital Course: This is a 31-year-old female 4 para 10-1 EDC 04/22/2022 at 39 and one sevenths weeks who presented on 04/16/2022 for repeat low transverse section, declining option for . Group B strep cultures negative, blood type B positive, rubella status nonimmune. Please see dictated history and physical for details. Patient underwent a repeat low transverse section with a spinal analgesia. She gave to a liveborn male infant with scores of 8 and 9 at one and 5 minutes respectively. He weighed 3580 g or 7 lbs. 14 oz. She did well intraoperatively with an estimated blood loss of 670 mL's. Please see my dictated operative note for details. This morning the patient is doing well. She is voiding, ambulating, passing flatus without difficulty. Vital signs are stable and she is afebrile. Incision is clean and dry, intact with Steri-Strips applied. Fundus is firm, midline, symmetric, 18 week size. has done well, circumcision has been performed. Patient is judged to be in good condition for discharge home. She will follow-up in the office with Dr. Coulter in 2 weeks, call for appointment. I have given her prescription for [place] 5/325 to be used sparingly at home for moderate to severe pain. I am recommending she use Advil, Motrin or Aleve as well. Reminded no intercourse, tampons or douching. We'll call with fevers shakes or chills, foul smelling or copious lochia, with the passage of large blood clots, or with any pain not alleviated as above. Assessment: Doing well second postoperative day Patient Condition at Discharge: Good Plan - Discharge Summary Discharge Rx Participant: No New Discharge Prescriptions: No Action Acetaminophen [Tylenol Extra Strength] 500 mg PO DIRECTED Famotidine 20 mg PO BID Pnv,Calcium 72/Iron/Folic Acid [[place] Plus Tablet] 1 each PO DAILY Discharge Medication List Acetaminophen [Tylenol Extra Strength] 500 mg PO DIRECTED 04/16/22 [History] Famotidine 20 mg PO BID 04/16/22 [History] Pnv,Calcium 72/Iron/Folic Acid [[place] Plus Tablet] 1 each PO DAILY 04/16/22 [History] Follow up Appointment(s)/Referral(s): Sonia Coulter DO [Doctor of Osteopathic Medicine] - 2 Weeks Discharge Disposition: HOME SELF-CARE
[2022-04-18] MEDS: SENNOSIDES-DOCUSATE SODIUM 1 EACH TAB PO SCH (09:16)
[2022-04-18 09:18] VITALS: BP 116/77; PULSE 73; RESP 15; TEMP 97.8
== END 2022-04-18 11:25 | disposition home or self-care (01) | DRG 788 ==
LOC: 4FBP 10:18
PROVIDERS: ADMIT Obstetrics & Gynecology; ATTEND Obstetrics & Gynecology
PROC: 10D00Z1 Extraction of Products of Conception, Low, Open Approach (ICD-10-PCS; principal; 2022-04-16 12:00)
DX: O34.211 Maternal care for low transverse scar from previous cesarean delivery (principal); O99.344 Other mental disorders complicating childbirth; M79.7 Fibromyalgia; G47.30 Sleep apnea, unspecified; F90.9 Attention-deficit hyperactivity disorder, unspecified type; F31.9 Bipolar disorder, unspecified; K21.9 Gastro-esophageal reflux disease without esophagitis; F41.9 Anxiety disorder, unspecified; Z3A.39 39 weeks gestation of pregnancy; Z37.0 Single live birth; Z88.0 Allergy status to penicillin; Z28.310 Unvaccinated for COVID-19
CPT/HCPCS: 85025; 86850; 86900; 86901; 90707

== ENCOUNTER 2024-04-03 20:49 | Emergency (ER) | payer OTHER ==
[2024-04-03 20:52] VITALS: RESP 18
[2024-04-03 21:14] LABS: Basophils # (A) 0.1 k/uL (0-0.2); Basophils % (A) 1 %; Eosinophils % (A) 0 %; HGB 13.8 gm/dL (11.4-16.0); Lymphocytes # (A) 2.2 k/uL (1.0-4.8); Lymphocytes % (A) 28 %; MCHC 33.6 g/dL (31.0-37.0); MCV 86.4 fL (80.0-100.0); Mean Platelet Volume 6.9; Monocytes # (A) 0.4 k/uL (0-1.0); Monocytes % (A) 6 %; Neutrophils # (A) 5.1 k/uL (1.3-7.7); Neutrophils % (A) 64 %; Platelet Count 390 k/uL (150-450); RBC 4.74 m/uL (3.80-5.40); RDW 12.9 % (11.5-15.5); WBC 8.1 k/uL (3.8-10.6)
[2024-04-03 21:26] LABS: ALT 37 U/L (4-34); AST 27 U/L (14-36); African American GFR (CKD) >90 (>60 ml/min/1.73 sqM); Albumin 4.8 g/dL (3.5-5.0); Alkaline Phosphatase 48 U/L (38-126); Amylase 46 U/L (30-110); Anion Gap 11 mmol/L; Blood Urea Nitrogen 11 mg/dL (7-17); Calcium 10.2 mg/dL (8.4-10.2); Carbon Dioxide 24 mmol/L (22-30); Chloride 97 mmol/L (98-107); Glucose 95 mg/dL (74-99); Lipase 195 U/L (23-300); Non-African American GFR(CKD) >90 (>60 ml/min/1.73 sqM); Sodium 132 mmol/L (137-145); Total Protein 7.5 g/dL (6.3-8.2)
[2024-04-03 21:55] LABS: Appearance,Urine Cloudy (Clear); Bacteria,Urine Moderate /hpf; Bilirubin,Urine Negative (Negative); Blood,Urine Negative (Negative); Color,Urine Yellow; Glucose,Urine (UA) Negative (Negative); Ketones,Urine 2+ (Negative); Leukocyte Esterase,Urine Large (Negative); Mucus,Urine Rare /hpf; Nitrite,Urine Negative (Negative); PH, Urine 6.5 (5.0-8.0); Protein,Urine Negative (Negative); RBC,Urine <1 /hpf (0-5); Specific Gravity,Urine 1.023 (1.001-1.035); Squamous Epithelial Cell,Urine 10 /hpf (0-4); Urobilinogen,Urine <2.0 mg/dL (<2.0); WBC,Urine 14 /hpf (0-5)
--- NOTE | 2024-04-03 22:11 | ED ---
Abdominal Pain HPI - General Chief Complaint: Abdominal Pain Stated Complaint: N/V Time Seen by Provider: 04/03/24 22:05 Source: patient, RN notes reviewed Mode of arrival: ambulatory Limitations: no limitations - History of Present Illness Initial Comments: 33-year-old female presenting to the ED with complaints of abdominal pain. Patient states was evaluated yesterday at outside hospital and was diagnosed with a UTI. Since then has had difficulties with urination, lower abdominal pain. Has been on one day of antibiotics however despite this notes continued symptoms prompting presentation to the ED for further evaluation. Does note some associated nausea with this as well. Denies fever or chills. Denies chest pain or shortness of breath. No other complaints at this time. - Related Data Home Medications Medication Instructions Recorded Confirmed Acetaminophen [Tylenol Extra 500 mg PO DIRECTED 04/16/22 04/16/22 Strength] Famotidine 20 mg PO BID 04/16/22 04/16/22 Pnv,Calcium 72/Iron/Folic Acid 1 each PO DAILY 04/16/22 04/16/22 [[place] Plus Tablet] Previous Rx's Medication Instructions Recorded Phenazopyridine HCl 200 mg PO TID PRN #6 tab 04/04/24 Allergies Allergy/AdvReac Type Severity Reaction Status Date / Time amoxicillin Allergy Unknown Verified 04/03/24 20:52 Review of Systems ROS Statement: Those systems with pertinent positive or pertinent negative responses have been documented in the HPI. ROS Other: All systems not noted in ROS Statement are negative. Past Medical History Past Medical History: Fibromyalgia, GERD/Reflux, Sleep Apnea/CPAP/BIPAP Additional Past Medical History / Comment(s): no cpap used, carpal tunnel [place] wrists History of Any Multi-Drug Resistant Organisms: None Reported Past Surgical History: Section, Orthopedic Surgery Additional Past Surgical History / Comment(s): tendon surgery left foot Past Anesthesia/Blood Transfusion Reactions: No Reported Reaction Past Psychological History: ADD/ADHD, Anxiety, Bipolar, Depression Smoking Status: Former smoker, Vaper Past Alcohol Use History: Rare Past Drug Use History: None Reported - Past Family History Mother Family Medical History: No Reported History General Exam - General Exam Comments Initial Comments: Visual Physical Exam Vital signs reviewed General: Well-appearing, nontoxic, no acute distress. Head: Normocephalic, atraumatic Eyes: PERRLA, EOMI ENT: Airway patent Chest: Nonlabored breathing Skin: No visual rash, normal skin tone Neuro: Alert and oriented 3 Musculoskeletal: No gross abnormalities Limitations: no limitations General appearance: alert, in no apparent distress Eye exam: Present: normal appearance Neck exam: Present: normal inspection Respiratory exam: Present: normal lung sounds bilaterally Cardiovascular Exam: Present: regular rate GI/Abdominal exam: Present: soft (Suprapubic tenderness to palpation. No rebound guarding or rigidity. No CVA tenderness to percussion bilaterally. Bowel sounds active.) Neurological exam: Present: alert, oriented X3 Skin exam: Present: warm, dry Course Vital Signs 04/03/24 20:51 Temperature 98.2 F Pulse Rate 92 Respiratory 18 Rate Blood Pressure 141/90 O2 Sat by Pulse 100 Oximetry Medical Decision Making - Medical Decision Making Was pt. sent in by a medical professional or institution (, PA, [facility], urgent care, hospital, or long-term...) When possible be specific @ -No Did you speak to anyone other than the patient for history (EMS, parent, family, police, friend...)? What history was obtained from this source @ -No Did you review nursing and triage notes (agree or disagree)? Why? @ -I reviewed and agree with nursing and triage notes Were old charts reviewed (outside hosp., previous admission, EMS record, old EKG, old radiological studies, urgent care reports/EKG's, long-term records)? Report findings @ -No old charts were reviewed Differential Diagnosis (chest pain, altered mental status, abdominal pain women, abdominal pain men, vaginal bleeding, weakness, fever, dyspnea, syncope, headache, dizziness, GI bleed, back pain, seizure, CVA, palpatations, mental health, musculoskeletal)? @ -Differential Abdominal Pain Women: Appendicitis, Cholecystitis, diverticulosis, ischemic bowel, pancreatitis, hepatitis, UTI, gastroenteritis, AAA, incarcerated hernia, bowel obstruction, constipation, inflammatory bowel, hepatitis, peptic ulcer disease, splenic infarction, perforated viscus, vulvitis, ovarian torsion, PID, kidney stone, placenta abruption, this is not meant to be an all-inclusive list EKG interpreted by me (3pts min.). @ -As above X-rays interpreted by me (1pt min.). @ -None done CT interpreted by me (1pt min.). @ -CT abdomen pelvis interpreted me which revealed no evidence of acute finding. U/S interpreted by me (1pt. min.). @ -None done What testing was considered but not performed or refused? (CT, X-rays, U/S, labs)? Why? @ -None What meds were considered but not given or refused? Why? @ -None Did you discuss the management of the patient with other professionals (professionals i.e. Dr., PA, [facility], lab, RT, psych nurse, psychosocial rehabilitation counselor, boilermaker pipe fitter, teacher, fire officer, telephonic case manager)? Give summary @ -No Was smoking cessation discussed for >3mins.? @ -No Was critical care preformed (if so, how long)? @ -No Were there social determinants of health that impacted care today? How? (Homelessness, low income, unemployed, alcoholism, drug addiction, transportation, low edu. Level, literacy, decrease access to med. care, [place] [facility], re hab)? @ -No Was there de-escalation of care discussed even if they declined (Discuss DNR or withdrawal of care, Hospice)? DNR status @ -No What co-morbidities impacted this encounter? (DM, HTN, Smoking, COPD, CAD, Cancer, CVA, ARF, Chemo, Hep., AIDS, mental health diagnosis, sleep apnea, morbid obesity)? @ -None Was patient admitted / discharged? Hospital course, mention meds given and route, prescriptions, significant lab abnormalities, going to OR and other pertinent info. @ -Discharge 33-year-old female presented to the ED with complaints of urinary tract infection with some associated lower abdominal pain. Was seen at an outside hospital yesterday and diagnosed with a UTI and provided prescription for Bactrim. Despite taking a dose of Bactrim today reports continued symptoms prompting presentation to the ED for further evaluation. Laboratory studies reviewed. Labs including CBC CMP unremarkable. Urine does show some evidence of infection with 14 white blood cells however contaminated with 10 squamous cells, moderate bacteria. Urine hCG negative. Patient provided a gram of ceftriaxone here. CT abdomen pelvis revealed no evidence of acute finding. Urine culture obtained. Discharged home in stable condition advised to continue Bactrim and Zofran as previously prescribed. Provided additional prescription for Azo. Discussed return precautions with patient who verbalized agreement. Undiagnosed new problem with uncertain prognosis? @ -No Drug Therapy requiring intensive monitoring for toxicity (Heparin, Nitro, Insulin, Cardizem)? @ -No Were any procedures done? @ -No Diagnosis/symptom? @ -UTI Acute, or Chronic, or Acute on Chronic? @ -Acute Uncomplicated (without systemic symptoms) or Complicated (systemic symptoms)? @ -Uncomplicated Side effects of treatment? @ -No Exacerbation, Progression, or Severe Exacerbation? @ -No Poses a threat to life or bodily function? How? (Chest pain, [place], [place], pneumonia, PE, COPD, DKA, ARF, appy, cholecystitis, CVA, Diverticulitis, Homicidal, Suicidal, threat to staff... and all critical care pts) @ -No - Lab Data Result diagrams: 04/03/24 20:54 04/03/24 20:54 Lab Results 04/03/24 04/03/24 04/03/24 Range/Units 20:54 20:54 20:54 WBC 8.1 (3.8-10.6) k/uL RBC 4.74 (3.80-5.40) m/uL Hgb 13.8 (11.4-16.0) gm/dL Hct 41.0 (34.0-46.0) % MCV 86.4 (80.0-100.0) fL MCH 29.0 (25.0-35.0) pg MCHC 33.6 (31.0-37.0) g/dL RDW 12.9 (11.5-15.5) % Plt Count 390 (150-450) k/uL MPV 6.9 Neutrophils % 64 % Lymphocytes % 28 % Monocytes % 6 % Eosinophils % 0 % Basophils % 1 % Neutrophils # 5.1 (1.3-7.7) k/uL Lymphocytes # 2.2 (1.0-4.8) k/uL Monocytes # 0.4 (0-1.0) k/uL Eosinophils # 0.0 (0-0.7) k/uL Basophils # 0.1 (0-0.2) k/uL Sodium (137-145) mmol/L Potassium (3.5-5.1) mmol/L Chloride (98-107) mmol/L Carbon Dioxide (22-30) mmol/L Anion Gap mmol/L BUN (7-17) mg/dL Creatinine (0.52-1.04) mg/dL Est GFR (CKD-EPI)AfAm (>60 ml/min/1.73 sqM) Est GFR (CKD-EPI)NonAf (>60 ml/min/1.73 sqM) Glucose (74-99) mg/dL Calcium (8.4-10.2) mg/dL Total Bilirubin (0.2-1.3) mg/dL AST (14-36) U/L ALT (4-34) U/L Alkaline Phosphatase (38-126) U/L Total Protein (6.3-8.2) g/dL Albumin (3.5-5.0) g/dL Amylase (30-110) U/L Lipase (23-300) U/L Urine Color Yellow Urine Appearance Cloudy H (Clear) Urine pH 6.5 (5.0-8.0) Ur Specific Transfer 1.023 (1.001-1.035) Urine Protein Negative (Negative) Urine Glucose (UA) Negative (Negative) Urine Ketones 2+ H (Negative) Urine Blood Negative (Negative) Urine Nitrite Negative (Negative) Urine Bilirubin Negative (Negative) Urine Urobilinogen <2.0 (<2.0) mg/dL Ur Leukocyte Esterase Large H (Negative) Urine RBC <1 (0-5) /hpf Urine WBC 14 H (0-5) /hpf Ur Squamous Epith Cells 10 H (0-4) /hpf Urine Bacteria Moderate H (None) /hpf Urine Mucus Rare H (None) /hpf Urine HCG, Qual Not Detected (Not Detectd) 04/03/24 Range/Units 20:54 WBC (3.8-10.6) k/uL RBC (3.80-5.40) m/uL Hgb (11.4-16.0) gm/dL Hct (34.0-46.0) % MCV (80.0-100.0) fL MCH (25.0-35.0) pg MCHC (31.0-37.0) g/dL RDW (11.5-15.5) % Plt Count (150-450) k/uL MPV Neutrophils % % Lymphocytes % % Monocytes % % Eosinophils % % Basophils % % Neutrophils # (1.3-7.7) k/uL Lymphocytes # (1.0-4.8) k/uL Monocytes # (0-1.0) k/uL Eosinophils # (0-0.7) k/uL Basophils # (0-0.2) k/uL Sodium 132 L (137-145) mmol/L Potassium 4.0 (3.5-5.1) mmol/L Chloride 97 L (98-107) mmol/L Carbon Dioxide 24 (22-30) mmol/L Anion Gap 11 mmol/L BUN 11 (7-17) mg/dL Creatinine 0.73 (0.52-1.04) mg/dL Est GFR (CKD-EPI)AfAm >90 (>60 ml/min/1.73 sqM) Est GFR (CKD-EPI)NonAf >90 (>60 ml/min/1.73 sqM) Glucose 95 (74-99) mg/dL Calcium 10.2 (8.4-10.2) mg/dL Total Bilirubin 1.0 (0.2-1.3) mg/dL AST 27 (14-36) U/L ALT 37 H (4-34) U/L Alkaline Phosphatase 48 (38-126) U/L Total Protein 7.5 (6.3-8.2) g/dL Albumin 4.8 (3.5-5.0) g/dL Amylase 46 (30-110) U/L Lipase 195 (23-300) U/L Urine Color Urine Appearance (Clear) Urine pH (5.0-8.0) Ur Specific Transfer (1.001-1.035) Urine Protein (Negative) Urine Glucose (UA) (Negative) Urine Ketones (Negative) Urine Blood (Negative) Urine Nitrite (Negative) Urine Bilirubin (Negative) Urine Urobilinogen (<2.0) mg/dL Ur Leukocyte Esterase (Negative) Urine RBC (0-5) /hpf Urine WBC (0-5) /hpf Ur Squamous Epith Cells (0-4) /hpf Urine Bacteria (None) /hpf Urine Mucus (None) /hpf Urine HCG, Qual (Not Detectd) Disposition Clinical Impression: UTI (urinary tract infection) Disposition: HOME SELF-CARE Condition: Good Instructions (If sedation given, give patient instructions): Urinary Tract Infection in Women (ED) Additional Instructions: Please return to the Emergency Department if symptoms worsen or any other concerns. Please continue previously prescribed medications. Follow-up with your primary care provider. Prescriptions: Phenazopyridine HCl 200 mg PO TID PRN #6 tab PRN Reason: pain Is patient prescribed a controlled substance at d/c from ED?: No Referrals: Jose Marcos MD [Primary Care Provider] - 1-2 days Time of Disposition: 01:00
[2024-04-03] MEDS: ONDANSETRON 4 MG/2 ML VIAL IVP STA (23:51)
[2024-04-03] MEDS: KETOROLAC 15 MG/ML 1 ML VIAL IVP STA (23:52)
[2024-04-03] MEDS: HYDROmorphone 0.5 MG/0.5 ML SYRINGE IVP STA (23:55)
[2024-04-03] MEDS: ACETAMINOPHEN TAB 500 MG TAB PO STA (23:56)
--- NOTE | 2024-04-04 00:37 | CT ---
EXAM: CT Abdomen and Pelvis Without Intravenous Contrast CLINICAL HISTORY: ITS.REASON CT Reason: r/o stone n,v, abdominal pain for 3 days. radiating pain and in lower back TECHNIQUE: Axial computed tomography images of the abdomen and pelvis without intravenous contrast. CTDI is 11.1 mGy and DLP is 645.5 mGy-cm. This CT exam was performed using one or more of the following dose reduction techniques: automated exposure control, adjustment of the mA and/or kV according to patient size, and/or use of iterative reconstruction technique. COMPARISON: CT Abdomen Pelvis dated 10/21/2019 FINDINGS: Lung bases: Unremarkable. No mass. No consolidation. ABDOMEN: Liver: Unremarkable. Gallbladder and bile ducts: Mildly increased density within the gallbladder may represent sludge. No calcified stones. No ductal dilation. Pancreas: Unremarkable. No ductal dilation. Spleen: Unremarkable. No splenomegaly. Adrenals: Unremarkable. No mass. Kidneys and ureters: Bilateral nonobstructing renal calculi, approximately 5-6 mm in size. No obstructing urinary tract calculus or hydronephrosis. Stomach and bowel: Unremarkable. No obstruction. No mucosal thickening. PELVIS: Appendix: Normal appendix. Bladder: Unremarkable. No stones. Reproductive: Unremarkable as visualized. ABDOMEN and PELVIS: Intraperitoneal space: Unremarkable. No free air. No significant fluid collection. Bones/joints: No acute fracture. No dislocation. Soft tissues: Small umbilical hernia containing fat. Vasculature: Unremarkable. No abdominal aortic aneurysm. Lymph nodes: Unremarkable. No enlarged lymph nodes. IMPRESSION: 1. No acute findings. 2. Bilateral nonobstructing renal calculi, approximately 5-6 mm in size. No obstructing urinary tract calculus or hydronephrosis.
[2024-04-04] MEDS: cefTRIAXone IN SWFI 1,000 MG/10 ML SYRINGE IVP STA (01:51)
[2024-04-04 02:03] VITALS: BP 135/82; PULSE 86; TEMP 98.1
== END 2024-04-04 02:33 | disposition home or self-care (01) ==
LOC: EC 20:49
DX: N39.0 Urinary tract infection, site not specified (principal); F17.290 Nicotine dependence, other tobacco product, uncomplicated; Z88.0 Allergy status to penicillin
CPT/HCPCS: 99284; 96374; 96375 ×3; 36415; 80053; 82150; 83690; 85025; 81001; 81025; 87086; 74176; J2405; J1885; J1170

== ENCOUNTER 2024-04-06 18:29 | Emergency (ER) | payer OTHER ==
[2024-04-06 18:41] VITALS: RESP 18; TEMP 98.8
[2024-04-06 20:00] LABS: Amorphous Sediment,Urine Rare /hpf; Appearance,Urine Cloudy (Clear); Bacteria,Urine Many /hpf; Bilirubin,Urine Negative (Negative); Blood,Urine Negative (Negative); Color,Urine Yellow; Glucose,Urine (UA) Negative (Negative); Ketones,Urine 1+ (Negative); Leukocyte Esterase,Urine Trace (Negative); Mucus,Urine Rare /hpf; Nitrite,Urine Negative (Negative); PH, Urine 6.5 (5.0-8.0); Protein,Urine Negative (Negative); RBC,Urine 2 /hpf (0-5); Specific Gravity,Urine 1.021 (1.001-1.035); Squamous Epithelial Cell,Urine 9 /hpf (0-4); Urobilinogen,Urine <2.0 mg/dL (<2.0); WBC,Urine 3 /hpf (0-5)
--- NOTE | 2024-04-06 20:47 | ED ---
Abdominal Pain HPI - General Chief Complaint: Abdominal Pain Stated Complaint: stomach pain Time Seen by Provider: 04/06/24 19:25 Source: patient Mode of arrival: ambulatory Limitations: no limitations - History of Present Illness Initial Comments: 33-year-old female seen by myself a few days ago presenting to the ED with continued complaints of abdominal/back pain. Patient initially seen a few days ago. At this time patient reports she was seen at outside hospital and was diagnosed with a UTI. Discharged home with prescription for Bactrim. Patient upon evaluation a few days ago noted continued complaints of abdominal/back pain despite taking Bactrim for 1 day. Workup at this time largely unremarkable including labs and imaging. Some slight infection noted on her urine however culture was performed at this time which was reviewed today which showed no growth. Patient reports since discharge has had continued symptoms of abdominal pain/back pain with some associated nausea and vomiting. However notes that she is no longer had painful urination or any urinary symptoms. States that she has had some clear/whitish vaginal discharge which patient states that she attributes to recently using new antibiotics. Patient states that she is not concerned for any STDs as she is not sexually active. No fever or chills. Patient reports that she has been taking antibiotics as prescribed. No other complaints at this time - Related Data Home Medications Medication Instructions Recorded Confirmed Acetaminophen [Tylenol Extra 500 mg PO DIRECTED 04/16/22 04/16/22 Strength] Famotidine 20 mg PO BID 04/16/22 04/16/22 Pnv,Calcium 72/Iron/Folic Acid 1 each PO DAILY 04/16/22 04/16/22 [Westab Plus Tablet] Previous Rx's Medication Instructions Recorded Phenazopyridine HCl 200 mg PO TID PRN #6 tab 04/04/24 Doxycycline [Vibramycin] 100 mg PO BID #28 capsule 04/07/24 metroNIDAZOLE [Flagyl] 500 mg PO BID 14 Days #28 tab 04/07/24 Allergies Allergy/AdvReac Type Severity Reaction Status Date / Time amoxicillin Allergy Unknown Verified 04/06/24 18:41 Review of Systems ROS Statement: Those systems with pertinent positive or pertinent negative responses have been documented in the HPI. ROS Other: All systems not noted in ROS Statement are negative. Past Medical History Past Medical History: Fibromyalgia, GERD/Reflux, Sleep Apnea/CPAP/BIPAP Additional Past Medical History / Comment(s): no cpap used, carpal tunnel [place] wrists History of Any Multi-Drug Resistant Organisms: None Reported Past Surgical History: Section, Orthopedic Surgery Additional Past Surgical History / Comment(s): tendon surgery left foot Past Anesthesia/Blood Transfusion Reactions: No Reported Reaction Past Psychological History: ADD/ADHD, Anxiety, Bipolar, Depression Smoking Status: Former smoker, Vaper Past Alcohol Use History: Rare Past Drug Use History: None Reported - Past Family History Mother Family Medical History: No Reported History General Exam Limitations: no limitations General appearance: alert, in no apparent distress Eye exam: Present: normal appearance Neck exam: Present: normal inspection Respiratory exam: Present: normal lung sounds bilaterally Cardiovascular Exam: Present: regular rate GI/Abdominal exam: Present: soft (No significant tenderness to palpation. No rebound guarding or rigidity.) External exam: Present: other (Chaperoned by Clara GARCIA. Some white discharge in vault. Os closed. Right adnexal tenderness to palpation.) Neurological exam: Present: alert, oriented X3 Skin exam: Present: warm, dry Course Vital Signs 04/06/24 18:40 Temperature 98.8 F Pulse Rate 81 Respiratory 18 Rate Blood Pressure 148/95 O2 Sat by Pulse 97 Oximetry Medical Decision Making - Medical Decision Making Was pt. sent in by a medical professional or institution (, PA, MACHINE COREMAKER, urgent care, hospital, or retirement...) When possible be specific @ -No Did you speak to anyone other than the patient for history (EMS, parent, family, police, friend...)? What history was obtained from this source @ -No Did you review nursing and triage notes (agree or disagree)? Why? @ -I reviewed and agree with nursing and triage notes Were old charts reviewed (outside hosp., previous admission, EMS record, old EKG, old radiological studies, urgent care reports/EKG's, retirement records)? Report findings @ -Prior urine culture shows no growth Differential Diagnosis (chest pain, altered mental status, abdominal pain women, abdominal pain men, vaginal bleeding, weakness, fever, dyspnea, syncope, headache, dizziness, GI bleed, back pain, seizure, CVA, palpatations, mental health, musculoskeletal)? @ -Differential Abdominal Pain Women: Appendicitis, Cholecystitis, diverticulosis, ischemic bowel, pancreatitis, hepatitis, UTI, gastroenteritis, AAA, incarcerated hernia, bowel obstruction, co nstipation, inflammatory bowel, hepatitis, peptic ulcer disease, splenic infarction, perforated viscus, vulvitis, ovarian torsion, PID, kidney stone, placenta abruption, this is not meant to be an all-inclusive list EKG interpreted by me (3pts min.). @ -None X-rays interpreted by me (1pt min.). @ -None done CT interpreted by me (1pt min.). @ -CT abdomen pelvis interpreted me which revealed no evidence of acute finding. U/S interpreted by me (1pt. min.). @ -None done What testing was considered but not performed or refused? (CT, X-rays, U/S, labs)? Why? @ -None What meds were considered but not given or refused? Why? @ -None Did you discuss the management of the patient with other professionals (professionals i.e. , PA, MACHINE COREMAKER, lab, RT, psych nurse, geriatric social work professor, cigarette making machine hopper feeder, teacher, school services officer, case assembler)? Give summary @ -No Was smoking cessation discussed for >3mins.? @ -No Was critical care preformed (if so, how long)? @ -No Were there social determinants of health that impacted care today? How? (Homelessness, low income, unemployed, alcoholism, drug addiction, transportation, low edu. Level, literacy, decrease access to med. care, senior living, rehab)? @ -No Was there de-escalation of care discussed even if they declined (Discuss DNR or withdrawal of care, Hospice)? DNR status @ -No What co-morbidities impacted this encounter? (DM, HTN, Smoking, COPD, CAD, Cancer, CVA, ARF, Chemo, Hep., AIDS, mental health diagnosis, sleep apnea, morbid obesity)? @ -None Was patient admitted / discharged? Hospital course, mention meds given and route, prescriptions, significant lab abnormalities, going to OR and other pertinent info. @ -Discharge 33-year-old female initially seen a few days ago with complaints of UTI symptoms presenting to the ED with complaints of continued abdominal pain/back pain with associated nausea and vomiting. At this time reports urinary symptoms have resolved however does note she has been experiencing some vaginal discharge. Denies concern for STD. Laboratory studies reviewed. CBC CMP largely unremarkable. Urine shows no significant evidence of infection and prior urine culture obtained showed no growth. hCG is negative. On examination she did have some white vaginal discharge and right adnexal tenderness to palpation. At this time vital signs stable afebrile. Urine sent for gonorrhea/chlamydia testing. Patient empirically treated for PID. Discharged home in stable condition with referral to see EMERGENCY ROOM TECHNICIAN. Discussed tricked return precautions with patient who verbalized agreement. Undiagnosed new problem with uncertain prognosis? @ -No Drug Therapy requiring intensive monitoring for toxicity (Heparin, Nitro, Insulin, Cardizem)? @ -No Were any procedures done? @ -No Diagnosis/symptom? @ -PID Acute, or Chronic, or Acute on Chronic? @ -Acute Uncomplicated (without systemic symptoms) or Complicated (systemic symptoms)? @ -Complicated Side effects of treatment? @ -No Exacerbation, Progression, or Severe Exacerbation? @ -No Poses a threat to life or bodily function? How? (Chest pain, [place], [place], pneumonia, PE, COPD, DKA, ARF, appy, cholecystitis, CVA, Diverticulitis, Homicidal, Suicidal, threat to staff... and all critical care pts) @ -Unlikely at this time - Lab Data Result diagrams: 04/06/24 20:55 04/06/24 20:55 Lab Results 04/06/24 04/06/24 04/06/24 Range/Units 19:13 19:13 20:55 WBC 6.4 (3.8-10.6) k/uL RBC 4.48 (3.80-5.40) m/uL Hgb 12.9 (11.4-16.0) gm/dL Hct 39.5 (34.0-46.0) % MCV 88.2 (80.0-100.0) fL MCH 28.7 (25.0-35.0) pg MCHC 32.5 (31.0-37.0) g/dL RDW 12.7 (11.5-15.5) % Plt Count 346 (150-450) k/uL MPV 7.0 Neutrophils % 73 % Lymphocytes % 21 % Monocytes % 4 % Eosinophils % 0 % Basophils % 0 % Neutrophils # 4.7 (1.3-7.7) k/uL Lymphocytes # 1.3 (1.0-4.8) k/uL Monocytes # 0.3 (0-1.0) k/uL Eosinophils # 0.0 (0-0.7) k/uL Basophils # 0.0 (0-0.2) k/uL Sodium (137-145) mmol/L Potassium (3.5-5.1) mmol/L Chloride (98-107) mmol/L Carbon Dioxide (22-30) mmol/L Anion Gap mmol/L BUN (7-17) mg/dL Creatinine (0.52-1.04) mg/dL Est GFR (CKD-EPI)AfAm (>60 ml/min/1.73 sqM) Est GFR (CKD-EPI)NonAf (>60 ml/min/1.73 sqM) Glucose (74-99) mg/dL Calcium (8.4-10.2) mg/dL Total Bilirubin (0.2-1.3) mg/dL AST (14-36) U/L ALT (4-34) U/L Alkaline Phosphatase (38-126) U/L Total Protein (6.3-8.2) g/dL Albumin (3.5-5.0) g/dL Urine Color Yellow Urine Appearance Cloudy H (Clear) Urine pH 6.5 (5.0-8.0) Ur Specific [place] 1.021 (1.001-1.035) Urine Protein Negative (Negative) Urine Glucose (UA) Negative (Negative) Urine Ketones 1+ H (Negative) Urine Blood Negative (Negative) Urine Nitrite Negative (Negative) Urine Bilirubin Negative (Negative) Urine Urobilinogen <2.0 (<2.0) mg/dL Ur Leukocyte Esterase Trace H (Negative) Urine RBC 2 (0-5) /hpf Urine WBC 3 (0-5) /hpf Ur Squamous Epith Cells 9 H (0-4) /hpf Amorphous Sediment Rare H (None) /hpf Urine Bacteria Many H (None) /hpf Urine Mucus Rare H (None) /hpf Urine HCG, Qual Not Detected (Not Detectd) 04/06/24 Range/Units 20:55 WBC (3.8-10.6) k/uL RBC (3.80-5.40) m/uL Hgb (11.4-16.0) gm/dL Hct (34.0-46.0) % MCV (80.0-100.0) fL MCH (25.0-35.0) pg MCHC (31.0-37.0) g/dL RDW (11.5-15.5) % Plt Count (150-450) k/uL MPV Neutrophils % % Lymphocytes % % Monocytes % % Eosinophils % % Basophils % % Neutrophils # (1.3-7.7) k/uL Lymphocytes # (1.0-4.8) k/uL Monocytes # (0-1.0) k/uL Eosinophils # (0-0.7) k/uL Basophils # (0-0.2) k/uL Sodium 134 L (137-145) mmol/L Potassium 3.8 (3.5-5.1) mmol/L Chloride 103 (98-107) mmol/L Carbon Dioxide 25 (22-30) mmol/L Anion Gap 6 mmol/L BUN 9 (7-17) mg/dL Creatinine 0.69 (0.52-1.04) mg/dL Est GFR (CKD-EPI)AfAm >90 (>60 ml/min/1.73 sqM) Est GFR (CKD-EPI)NonAf >90 (>60 ml/min/1.73 sqM) Glucose 92 (74-99) mg/dL Calcium 9.8 (8.4-10.2) mg/dL Total Bilirubin 0.8 (0.2-1.3) mg/dL AST 23 (14-36) U/L ALT 30 (4-34) U/L Alkaline Phosphatase 44 (38-126) U/L Total Protein 7.0 (6.3-8.2) g/dL Albumin 4.5 (3.5-5.0) g/dL Urine Color Urine Appearance (Clear) Urine pH (5.0-8.0) Ur Specific [place] (1.001-1.035) Urine Protein (Negative) Urine Glucose (UA) (Negative) Urine Ketones (Negative) Urine Blood (Negative) Urine Nitrite (Negative) Urine Bilirubin (Negative) Urine Urobilinogen (<2.0) mg/dL Ur Leukocyte Esterase (Negative) Urine RBC (0-5) /hpf Urine WBC (0-5) /hpf Ur Squamous Epith Cells (0-4) /hpf Amorphous Sediment (None) /hpf Urine Bacteria (None) /hpf Urine Mucus (None) /hpf Urine HCG, Qual (Not Detectd) Disposition Clinical Impression: PID (acute pelvic inflammatory disease) Disposition: HOME SELF-CARE Condition: Good Instructions (If sedation given, give patient instructions): Pelvic Inflammatory Disease (ED) Additional Instructions: Please return to the Emergency Department if symptoms worsen or any other concerns. Please follow-up with EMERGENCY ROOM TECHNICIAN. Take antibiotics as prescribed. Prescriptions: metroNIDAZOLE [Flagyl] 500 mg PO BID 14 Days #28 tab Doxycycline [Vibramycin] 100 mg PO BID #28 capsule Is patient prescribed a controlled substance at d/c from ED?: No Referrals: Jose Marcos MD [Primary Care Provider] - 1-2 days Time of Disposition: 00:32
[2024-04-06] MEDS: SODIUM CHLORIDE 0.9% 2,000 ML IV STA (20:55)
[2024-04-06] MEDS: ONDANSETRON 4 MG/2 ML VIAL IVP STA (20:57)
[2024-04-06] MEDS: HYDROmorphone 0.5 MG/0.5 ML SYRINGE IVP STA (20:58)
[2024-04-06] MEDS: KETOROLAC 15 MG/ML 1 ML VIAL IVP STA (20:58)
--- NOTE | 2024-04-06 21:20 | CT ---
EXAMINATION TYPE: CT abdomen pelvis wo con CT DLP: 650.7 mGycm, Automated exposure control for dose reduction was used. DATE OF EXAM: 04/06/2024 9:10 PM COMPARISON: 04/03/2024 CLINICAL INDICATION:Female, 33 years old with history of flank pain bilateral; Bilateral flank pain x 4 days. TECHNIQUE: Axial CT abdomen pelvis wo con;Sagittal and coronal reformats were created on a separate workstation. Contrast used: mL of , (none if empty) Oral contrast used: without Oral Contrast (none if empty) FINDINGS: LOWER CHEST: Unremarkable ABDOMEN LIVER: Unremarkable GALLBLADDER AND BILE DUCTS: Unremarkable. PANCREAS: Unremarkable. SPLEEN: Unremarkable. ADRENAL GLANDS: Unremarkable. KIDNEYS AND URETERS: Bilateral renal calculi measuring up to 7 mm on the right and 6 mm on the left. No hydronephrosis. PELVIS BLADDER: Unremarkable REPRODUCTIVE: Unremarkable. ABDOMEN & PELVIS STOMACH AND BOWEL: No evidence of bowel obstruction. Independent is normal. Moderate to large amount stool throughout the colon. PERITONEUM/RETROPERITONEUM: No evidence of pneumoperitoneum or free fluid. VASCULATURE: No evidence of aortic aneurysm. MUSCULOSKELETAL: No acute osseous abnormalities LYMPH NODES: No gross evidence for lymphadenopathy. SOFT TISSUE/ABDOMINAL WALL: Unremarkable IMPRESSION: 1. No significant change from prior. 2. Bilateral nonobstructing renal calculi. No evidence for obstructive uropathy. 3. Normal appendix. 4. Moderate to large amount stool in the colon.
[2024-04-06 21:25] LABS: Basophils % (A) 0 %; Eosinophils % (A) 0 %; HCT 39.5 % (34.0-46.0); HGB 12.9 gm/dL (11.4-16.0); Lymphocytes # (A) 1.3 k/uL (1.0-4.8); Lymphocytes % (A) 21 %; MCH 28.7 pg (25.0-35.0); MCHC 32.5 g/dL (31.0-37.0); MCV 88.2 fL (80.0-100.0); Monocytes # (A) 0.3 k/uL (0-1.0); Monocytes % (A) 4 %; Neutrophils # (A) 4.7 k/uL (1.3-7.7); Neutrophils % (A) 73 %; Platelet Count 346 k/uL (150-450); RBC 4.48 m/uL (3.80-5.40); RDW 12.7 % (11.5-15.5); WBC 6.4 k/uL (3.8-10.6)
[2024-04-06 21:29] LABS: ALT 30 U/L (4-34); AST 23 U/L (14-36); African American GFR (CKD) >90 (>60 ml/min/1.73 sqM); Albumin 4.5 g/dL (3.5-5.0); Alkaline Phosphatase 44 U/L (38-126); Anion Gap 6 mmol/L; Blood Urea Nitrogen 9 mg/dL (7-17); Calcium 9.8 mg/dL (8.4-10.2); Carbon Dioxide 25 mmol/L (22-30); Chloride 103 mmol/L (98-107); Glucose 92 mg/dL (74-99); Non-African American GFR(CKD) >90 (>60 ml/min/1.73 sqM); Potassium 3.8 mmol/L (3.5-5.1); Sodium 134 mmol/L (137-145); Total Bilirubin 0.8 mg/dL (0.2-1.3)
[2024-04-06] MEDS: METOCLOPRAMIDE 5 MG/ML 2 ML VIAL IVP STA (23:08)
[2024-04-06] MEDS: HYDROmorphone 1 MG/ML 1 ML SYRINGE IVP STA (23:10)
[2024-04-07] MEDS: cefTRIAXone IN SWFI 1,000 MG/10 ML SYRINGE IVP STA (00:44)
[2024-04-07 00:52] VITALS: BP 121/72; PULSE 82
[2024-04-07 13:22] LABS: N. gonorrhoeae,PCR Negative (Negative)
[2024-04-07 13:32] LABS: C. trachomatis,PCR Negative (Negative)
== END 2024-04-07 01:21 | disposition home or self-care (01) ==
LOC: EC 18:29
DX: N73.9 Female pelvic inflammatory disease, unspecified (principal); Z88.0 Allergy status to penicillin; Z87.891 Personal history of nicotine dependence
CPT/HCPCS: 36415; 80053; 85025; 81001; 81025; 87491; 87591; 74176; 99284; 96374; 96375 ×4; 96376; 96361 ×2; J2765; J2405; J1170 ×2; J1885

== ENCOUNTER 2024-04-18 05:29 | Emergency (ER) | payer OTHER ==
[2024-04-18] MEDS: SODIUM CHLORIDE 0.9% 1,000 ML IV STA (06:29)
[2024-04-18] MEDS: cefTRIAXone IN SWFI 1,000 MG/10 ML SYRINGE IVP STA (06:30)
[2024-04-18] MEDS: metroNIDAZOLE 500 MG TAB PO STA (06:32)
[2024-04-18] MEDS: DOXYCYCLINE 100 MG CAP PO STA (06:32)
[2024-04-18] MEDS: ONDANSETRON 4 MG/2 ML VIAL IVP STA (06:33)
[2024-04-18] MEDS: KETOROLAC 15 MG/ML 1 ML VIAL IVP STA (06:35)
[2024-04-18] MEDS: ORPHENADRINE 30 MG/ML 2 ML VIAL IVP STA (06:36)
[2024-04-18] MEDS: LIDOCAINE 4% PATCH TOPICAL ONE (06:38)
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
[2024-04-18] MEDS: ACET/COD 300 MG/30 MG STARTER PACK 6 TAB BTL PO STA (08:29)
[2024-04-18 08:35] VITALS: BP 99/62; PULSE 89; RESP 16; TEMP 98.7
== END 2024-04-18 08:35 | disposition home or self-care (01) ==
LOC: EC 05:29
DX: S50.12XA Contusion of left forearm, initial encounter (principal); S80.12XA Contusion of left lower leg, initial encounter; S80.11XA Contusion of right lower leg, initial encounter; S09.90XA Unspecified injury of head, initial encounter; F17.290 Nicotine dependence, other tobacco product, uncomplicated; Z88.0 Allergy status to penicillin; Y08.89XA Assault by other specified means, initial encounter
CPT/HCPCS: 73590; 72100; 73090; 70450; 99284; 96374; 96375 ×3; 96361; J2360; J2405; J0696; J1885

== ENCOUNTER 2024-08-28 08:48 | Emergency (ER) | payer OTHER ==
[2024-08-28 08:58] VITALS: TEMP 98.3
[2024-08-28] MEDS: KETOROLAC 15 MG/ML 1 ML VIAL IM STA (09:16)
[2024-08-28] MEDS: HYDROmorphone 1 MG/ML 1 ML SYRINGE IM STA ×2 (09:20→09:59)
--- NOTE | 2024-08-28 09:22 | ED ---
Extremity Problem HPI - General Chief complaint: Extremity Problem,Nontraumatic Stated complaint: Both wrist/hand pain Time Seen by Provider: 08/28/24 08:59 Source: patient, RN notes reviewed Mode of arrival: ambulatory Limitations: no limitations - History of Present Illness Initial comments: This is a 33-year-old female who presents to the emergency department for bilateral hand and wrist pain. States that she has been dealing with carpal tunnel for the last 8 years, but has started to get substantially worse. Feels like she is at the point where she cannot hold onto anything and her hands feel like they are burning from the inside out. She has not seen orthopedics or followed up with any other specialists. She does take [place] 10 mg chronically and has been trying ibuprofen for this pain, which only lasts for a couple of hours. The pain is also waking her up at night. She is trying to wear splints at night on her wrists, however these are not helpful. MD Complaint: extremity pain - Related Data Home Medications Medication Instructions Recorded Confirmed Acetaminophen [Tylenol Extra 500 mg PO DIRECTED 04/16/22 04/16/22 Strength] Famotidine 20 mg PO BID 04/16/22 04/16/22 Pnv,Calcium 72/Iron/Folic Acid 1 each PO DAILY 04/16/22 04/16/22 [Westab Plus Tablet] Previous Rx's Medication Instructions Recorded Phenazopyridine HCl 200 mg PO TID PRN #6 tab 04/04/24 Doxycycline [Vibramycin] 100 mg PO BID #28 capsule 04/07/24 Ondansetron Odt [Zofran Odt] 4 mg PO Q8HR PRN #10 tab 04/07/24 metroNIDAZOLE [Flagyl] 500 mg PO BID 14 Days #28 tab 04/07/24 Cyclobenzaprine [Flexeril] 5 - 10 mg PO TID PRN #30 tablet 04/18/24 Ketorolac [Toradol] 10 mg PO Q6HR PRN #15 tab 04/18/24 Ondansetron Odt [Zofran Odt] 4 mg PO Q8HR PRN #15 tab 04/18/24 Meloxicam [Mobic] 15 mg PO DAILY #30 tab 08/28/24 predniSONE 50 mg PO DAILY 5 Days #5 tablet 08/28/24 Allergies Allergy/AdvReac Type Severity Reaction Status Date / Time amoxicillin Allergy Unknown Verified 06/18/24 20:36 Review of Systems ROS Statement: Those systems with pertinent positive or pertinent negative responses have been documented in the HPI. ROS Other: All systems not noted in ROS Statement are negative. Past Medical History Past Medical History: Fibromyalgia, GERD/Reflux, Sleep Apnea/CPAP/BIPAP Additional Past Medical History / Comment(s): no cpap used, carpal tunnel [place] wrists History of Any Multi-Drug Resistant Organisms: None Reported Past Surgical History: Section, Orthopedic Surgery Additional Past Surgical History / Comment(s): tendon surgery left foot Past Anesthesia/Blood Transfusion Reactions: No Reported Reaction Past Psychological History: ADD/ADHD, Anxiety, Bipolar, Depression Smoking Status: Former smoker, Vaper Past Alcohol Use History: Rare Past Drug Use History: None Reported - Past Family History Mother Family Medical History: No Reported History General Exam Limitations: no limitations General appearance: alert, in no apparent distress Head exam: Present: atraumatic, normocephalic, normal inspection Respiratory exam: Present: normal lung sounds bilaterally. Absent: respiratory distress, wheezes, rales, rhonchi, stridor Cardiovascular Exam: Present: regular rate, normal rhythm, normal heart sounds. Absent: systolic murmur, diastolic murmur, rubs, gallop, clicks Extremities exam: Present: other (Positive Phalen's and Tinel's bilaterally. No swelling, erythema, or tenderness. 2+ radial pulses) Neurological exam: Present: alert, oriented X3, CN II-XII intact Psychiatric exam: Present: normal affect, normal mood Skin exam: Present: warm, dry, intact, normal color. Absent: rash Course Vital Signs 08/28/24 08/28/24 08/28/24 08:50 09:16 10:17 Temperature 98.3 F Pulse Rate 97 85 75 Respiratory 18 16 16 Rate Blood Pressure 128/81 113/85 118/77 O2 Sat by Pulse 96 97 96 Oximetry Medical Decision Making - Medical Decision Making This is a 33-year-old female who presents to the emergency department for bilateral hand and wrist pain. Was pt. sent in by a medical professional or institution? @ -No Did you speak to anyone other than the patient for history? @ -No Did you review nursing and triage notes? @ -Yes, and I agree, it is accurate with regards to the patient's symptoms. Were old charts reviewed? @ -No Differential Diagnosis? @ -Differential Musculoskeletal Muscular strain, contusion, ligament sprain, fracture, arthritis, septic arthritis, bursitis, cellulitis, muscle spasm, nerve compression, DVT, arterial occlusion, herpes zoster, electrolyte abnormality, tumor.... This is not meant to be in all inclusive list EKG interpreted by me (3pts min.)? @ -Not obtained X-rays interpreted by me (1pt min.)? @ -Not obtained CT interpreted by me (1pt min.)? @ -Not obtained U/S interpreted by me (1pt. min.)? @ -Not obtained What testing was considered but not performed? (CT, X-rays, U/S, labs)? Why? @ -None What meds were considered but not given? Why? @ -None Did you discuss the management of the patient with other professionals? @ -No Did you reconcile home meds? @ -No Was smoking cessation discussed for >3mins.? @ -I discussed smoking cessation for greater than 3 minutes. The risk of smoking were discussed with the patient including but not limited to risks of cancer, stroke, coronary artery disease and COPD. Also discussed with patient were multiple methods of quitting smoking. Lastly we discussed the financial cost of smoking. Was critical care preformed (if so, how long)? @ -No Were there social determinants of health that impacted care today? How? (Homelessness, low income, unemployed, alcoholism, drug addiction, transportation, low edu. Level, literacy, decrease access to med. care, halfway, rehab)? @ -No Was there de-escalation of care discussed even if they declined? (Discuss DNR or withdrawal of care, Hospice)? @ -No What co-morbidities impacted this encounter? (DM, HTN, Smoking, COPD, CAD, Cancer, CVA, Hep., AIDS, mental health diagnosis, sleep apnea, morbid obesity)? @ -Fibromyalgia, smoking Was patient admitted / discharged? @ -Discharged. Given that this is a chronic and ongoing issue, no imaging was obtained. Pain was treated in the emergency department. Advised that she will need to follow-up with orthopedics for definitive management. We can try a course of prednisone see if that helps with additional inflammation. Meloxicam was prescribed to be taken after finishing the prednisone to see if it is more effective than the ibuprofen she is taking. Given that she needs to see a hand specialist, she will follow-up with [facility] to discuss carpal tunnel release or steroid injections. Patient discharged home in stable condition. Case discussed with ED attending Dr. Nicole. Return precautions reviewed in depth, the patient is instructed to return to the emergency department with any new, worsening, or concerning symptoms. Patient verbalized understanding. Undiagnosed new problem with uncertain prognosis? @ -None Drug Therapy requiring intensive monitoring for toxicity (Heparin, Nitro, Insulin, Cardizem)? @ -None Were any procedures done? @ -None Diagnosis/symptom? @ -Carpal tunnel syndrome Acute, or Chronic, or Acute on Chronic? @ -Chronic Uncomplicated (without systemic symptoms) or Complicated (systemic symptoms)? @ -Uncomplicated Side effects of treatment? @ -None Exacerbation, Progression, or Severe Exacerbation] @ -Progression Poses a threat to life or bodily function? @ -Patient states that pain is limiting her ability to function. Disposition Clinical Impression: Carpal tunnel syndrome, Nicotine dependence Disposition: HOME SELF-CARE Instructions (If sedation given, give patient instructions): Paresthesia (ED), Carpal Tunnel Surgery (DC) Additional Instructions: Return to the emergency department with any new, worsening, or concerning symptoms. Take the prednisone daily for 5 days. After taking the prednisone begin taking the Meloxicam. Do not take any other anti-inflammatories such as ibuprofen with this. You can take Tylenol and your other medications. Contact orthopedics listed below for a follow-up appointment and further evaluation of the ongoing carpal tunnel. Follow up with your primary care provider in 1-2 days. Prescriptions: Meloxicam [Mobic] 15 mg PO DAILY #30 tab predniSONE 50 mg PO DAILY 5 Days #5 tablet Is patient prescribed a controlled substance at d/c from ED?: No Referrals: Jose Marcos MD [Primary Care Provider] - 1-2 days Sherif Jo MD [STAFF PHYSICIAN] - 1-2 days Time of Disposition: 09:53
[2024-08-28 09:46] VITALS: RESP 16
[2024-08-28] MEDS: methylPREDNISolone SOD SUCCI 125 MG/2 ML VIAL IM ONE (10:03)
[2024-08-28 10:18] VITALS: BP 118/77; PULSE 75
== END 2024-08-28 10:19 | disposition home or self-care (01) ==
LOC: EC 08:48
DX: G56.03 Carpal tunnel syndrome, bilateral upper limbs (principal); M79.7 Fibromyalgia; F17.290 Nicotine dependence, other tobacco product, uncomplicated; Z88.0 Allergy status to penicillin
CPT/HCPCS: 99406; 99283; 96372 ×4; J1171; J1885; J2919

== ENCOUNTER 2024-09-04 07:59 | Emergency (ER) | payer OTHER ==
[2024-09-04 08:03] VITALS: BP 148/86; PULSE 102; RESP 18; TEMP 97.6
--- NOTE | 2024-09-04 08:15 | ED ---
General Adult HPI - General Chief complaint: Extremity Problem,Nontraumatic Stated complaint: Bilateral wrist pain Time Seen by Provider: 09/04/24 08:05 Source: patient, RN notes reviewed Mode of arrival: ambulatory Limitations: no limitations - History of Present Illness Initial comments: Patient is a 33-year-old female presenting to the emergency department with concerns with wrist pain. Patient states this affects both wrists and has been occurring for years. Patient has seen her doctor and has been diagnosed with carpal tunnel syndrome. Patient has yet to see orthopedics for this. Patient was here last week and he had steroids which did help improve her symptoms however symptoms have returned now that she has finished steroids. No weakness. Discomfort is mostly bilateral wrists extending to the hand however does extend up both arms. Discomfort is diffusely through the hands and wrists however more on the ulnar side. - Related Data Home Medications Medication Instructions Recorded Confirmed Acetaminophen [Tylenol Extra 500 mg PO DIRECTED 04/16/22 04/16/22 Strength] Famotidine 20 mg PO BID 04/16/22 04/16/22 Pnv,Calcium 72/Iron/Folic Acid 1 each PO DAILY 04/16/22 04/16/22 [[place] Plus Tablet] Previous Rx's Medication Instructions Recorded Phenazopyridine HCl 200 mg PO TID PRN #6 tab 04/04/24 Doxycycline [Vibramycin] 100 mg PO BID #28 capsule 04/07/24 Ondansetron Odt [Zofran Odt] 4 mg PO Q8HR PRN #10 tab 04/07/24 metroNIDAZOLE [Flagyl] 500 mg PO BID 14 Days #28 tab 04/07/24 Cyclobenzaprine [Flexeril] 5 - 10 mg PO TID PRN #30 tablet 04/18/24 Ketorolac [Toradol] 10 mg PO Q6HR PRN #15 tab 04/18/24 Ondansetron Odt [Zofran Odt] 4 mg PO Q8HR PRN #15 tab 04/18/24 Meloxicam [Mobic] 15 mg PO DAILY #30 tab 08/28/24 predniSONE 50 mg PO DAILY 5 Days #5 tablet 08/28/24 Famotidine [Pepcid] 20 mg PO BID #30 tablet 09/04/24 methylPREDNISolone Dose Pack 4 mg PO DIRECTED #21 tab 09/04/24 [Medrol Dose Pack] Allergies Allergy/AdvReac Type Severity Reaction Status Date / Time amoxicillin Allergy Unknown Verified 09/04/24 08:00 Review of Systems ROS Statement: Those systems with pertinent positive or pertinent negative responses have been documented in the HPI. ROS Other: All systems not noted in ROS Statement are negative. Constitutional: Denies: fever Eyes: Denies: eye pain ENT: Denies: ear pain Neurological: Reports: as per HPI. Denies: weakness Past Medical History Past Medical History: Fibromyalgia, GERD/Reflux, Sleep Apnea/CPAP/BIPAP Additional Past Medical History / Comment(s): no cpap used, carpal tunnel [place] wrists History of Any Multi-Drug Resistant Organisms: None Reported Past Surgical History: Section, Orthopedic Surgery Additional Past Surgical History / Comment(s): tendon surgery left foot Past Anesthesia/Blood Transfusion Reactions: No Reported Reaction Past Psychological History: ADD/ADHD, Anxiety, Bipolar, Depression Smoking Status: Former smoker, Vaper Past Alcohol Use History: Rare Past Drug Use History: None Reported - Past Family History Mother Family Medical History: No Reported History General Exam Limitations: no limitations General appearance: alert, in no apparent distress Head exam: Present: normocephalic Eye exam: Present: normal appearance Neck exam: Present: normal inspection Respiratory exam: Present: normal lung sounds bilaterally Cardiovascular Exam: Present: regular rate, normal rhythm Expanded Peripheral pulses: 2+: Radial (R), Radial (L) GI/Abdominal exam: Present: soft. Absent: tenderness Extremities exam: Present: normal inspection, full ROM. Absent: tenderness Neurological exam: Present: alert, other (Good strength and sensation bilateral hands). Absent: motor sensory deficit Psychiatric exam: Present: normal affect, normal mood Skin exam: Present: normal color Course Vital Signs 09/04/24 08:01 Temperature 97.6 F Pulse Rate 102 H Respiratory 18 Rate Blood Pressure 148/86 O2 Sat by Pulse 100 Oximetry Medical Decision Making - Medical Decision Making Was pt. sent in by a medical professional or institution (, PA, ATTACHER, urgent care, hospital, or long term...) When possible be specific @ -No Did you speak to anyone other than the patient for history (EMS, parent, family, police, friend...)? What history was obtained from this source @ -No Did you review nursing and triage notes (agree or disagree)? Why? @ -I reviewed and agree with nursing and triage notes Were old charts reviewed (outside hosp., previous admission, EMS record, old EKG, old radiological studies, urgent care reports/EKG's, long term records)? Report findings @ -Previous visit reviewed Differential Diagnosis (chest pain, altered mental status, abdominal pain women, abdominal pain men, vaginal bleeding, weakness, fever, dyspnea, syncope, headache, dizziness, GI bleed, back pain, seizure, CVA, palpatations, mental health, musculoskeletal)? @ -Differential Musculoskeletal Muscular strain, contusion, ligament sprain, fracture, arthritis, septic arthritis, bursitis, cellulitis, muscle spasm, nerve compression, DVT, arterial occlusion, herpes zoster, electrolyte abnormality, tumor.... This is not meant to be in all inclusive list EKG interpreted by me (3pts min.). @ -As above X-rays interpreted by me (1pt min.). @ -None done CT interpreted by me (1pt min.). @ -None done U/S interpreted by me (1pt. min.). @ -None done What testing was considered but not performed or refused? (CT, X-rays, U/S, labs)? Why? @ -Considered imaging however this is a chronic problem What meds were considered but not given or refused? Why? @ -None Did you discuss the management of the patient with other professionals (professionals i.e. , PA, ATTACHER, lab, RT, psych nurse, social media content specialist, scaffolding helper, teacher, anti air warfare operations officer, director of casework department)? Give summary @ -No Was smoking cessation discussed for >3mins.? @ -No Was critical care preformed (if so, how long)? @ -No Were there social determinants of health that impacted care today? How? (Homelessness, low income, unemployed, alcoholism, drug addiction, transportation, low edu. Level, literacy, decrease access to med. care, [facility], rehab)? @ -No Was there de-escalation of care discussed even if they declined (Discuss DNR or withdrawal of care, Hospice)? DNR status @ -No What co-morbidities impacted this encounter? (DM, HTN, Smoking, COPD, CAD, Cancer, CVA, ARF, Chemo, Hep., AIDS, mental health diagnosis, sleep apnea, morbid obesity)? @ -None Was patient admitted / discharged? Hospital course, mention meds given and route, prescriptions, significant lab abnormalities, going to OR and other pertinent info. @ -Patient presents with concerns for exacerbation of her carpal tunnel syndrome. Patient does have a similar symptom however more likely ulnar neuropathy. Patient will be discharged with orthopedic referral that she does have plans of following up with. Patient is agreeable with plan and is updated Undiagnosed new problem with uncertain prognosis? @ -No Drug Therapy requiring intensive monitoring for toxicity (Heparin, Nitro, Insulin, Cardizem)? @ -No Were any procedures done? @ -No Diagnosis/symptom? @ -Neuropathy Acute, or Chronic, or Acute on Chronic? @ -Acute Uncomplicated (without systemic symptoms) or Complicated (systemic symptoms)? @ -Default Side effects of treatment? @ -No Exacerbation, Progression, or Severe Exacerbation? @ -No Poses a threat to life or bodily function? How? (Chest pain, [place], [place], pneumonia, PE, COPD, DKA, ARF, appy, cholecystitis, CVA, Diverticulitis, Homicidal, Suicidal, threat to staff... and all critical care pts) @ -Threat to nervous function Disposition Clinical Impression: Neuropathy Disposition: HOME SELF-CARE Condition: Stable Instructions (If sedation given, give patient instructions): Peripheral Neuropathy (ED) Additional Instructions: Prescription sent to pharmacy. Please do follow-up with primary care physician in the next couple of days for recheck. Please also follow-up with orthopedics, number provided. Return for increased pain, weakness, loss of sensation, worsening or changing symptoms or any other concerns. Do not use anti- inflammatories such as ibuprofen or similar with steroid. Continue to use wrist braces. Consider [id number] stomach protective medicine such as Pepcid, prescription provided. Prescriptions: methylPREDNISolone Dose Pack [Medrol Dose Pack] 4 mg PO DIRECTED #21 tab Famotidine [Pepcid] 20 mg PO BID #30 tablet Is patient prescribed a controlled substance at d/c from ED?: No Referrals: Jose Marcos MD [Primary Care Provider] - 1-2 days Camila Heaton DO [Doctor of Osteopathic Medicine] - 1-2 days Time of Disposition: 08:13
[2024-09-04] MEDS: KETOROLAC 15 MG/ML 1 ML VIAL IM STA (08:16)
[2024-09-04] MEDS: ACET/COD 300 MG/30 MG STARTER PACK 6 TAB BTL PO STA (08:16)
== END 2024-09-04 08:33 | disposition home or self-care (01) ==
LOC: EC 07:59
DX: G62.9 Polyneuropathy, unspecified (principal); F17.290 Nicotine dependence, other tobacco product, uncomplicated; Z88.0 Allergy status to penicillin
CPT/HCPCS: 96372; 99283; J1885; 99284

== ENCOUNTER 2024-10-23 22:08 | Emergency (ER) | payer OTHER ==
[2024-10-23 22:12] VITALS: PULSE 85; RESP 18; TEMP 98.3
--- NOTE | 2024-10-23 22:27 | ED ---
Extremity Problem HPI - General Chief complaint: Extremity Problem,Nontraumatic Stated complaint: Carpal tunnel Time Seen by Provider: 10/23/24 22:15 Source: patient Mode of arrival: ambulatory - History of Present Illness Initial comments: 33-year-old female with history of carpal tunnel presenting with chief complaint of bilateral wrist and hand pain.States that her pain has been quite bad for the past few days. She denies any injury or trauma. She has pain that radiates from the wrist into the hands and also some pins and needle sensation. She states that she has seen an Ortho in the past and was told that she needs surgery, states that she does not want to do surgery at this time. She went to the chiropractor yesterday and when she woke up today her hand pain had increased. No discoloration. She states that there was some swelling earlier today, no swelling at this time. No obvious deformity. - Related Data Home Medications Medication Instructions Recorded Confirmed Acetaminophen [Tylenol Extra 500 mg PO DIRECTED 04/16/22 04/16/22 Strength] Famotidine 20 mg PO BID 04/16/22 04/16/22 Pnv,Calcium 72/Iron/Folic Acid 1 each PO DAILY 04/16/22 04/16/22 [Westab Plus Tablet] Previous Rx's Medication Instructions Recorded Phenazopyridine HCl 200 mg PO TID PRN #6 tab 04/04/24 Doxycycline [Vibramycin] 100 mg PO BID #28 capsule 04/07/24 Ondansetron Odt [Zofran Odt] 4 mg PO Q8HR PRN #10 tab 04/07/24 metroNIDAZOLE [Flagyl] 500 mg PO BID 14 Days #28 tab 04/07/24 Cyclobenzaprine [Flexeril] 5 - 10 mg PO TID PRN #30 tablet 04/18/24 Ketorolac [Toradol] 10 mg PO Q6HR PRN #15 tab 04/18/24 Ondansetron Odt [Zofran Odt] 4 mg PO Q8HR PRN #15 tab 04/18/24 Meloxicam [Mobic] 15 mg PO DAILY #30 tab 08/28/24 predniSONE 50 mg PO DAILY 5 Days #5 tablet 08/28/24 Famotidine [Pepcid] 20 mg PO BID #30 tablet 09/04/24 methylPREDNISolone Dose Pack 4 mg PO DIRECTED #21 tab 09/04/24 [Medrol Dose Pack] methylPREDNISolone Dose Pack 4 mg PO DIRECTED #21 tab 10/23/24 [Medrol Dose Pack] Allergies Allergy/AdvReac Type Severity Reaction Status Date / Time amoxicillin Allergy Unknown Verified 10/23/24 22:12 Review of Systems ROS Statement: Those systems with pertinent positive or pertinent negative responses have been documented in the HPI. ROS Other: All systems not noted in ROS Statement are negative. Past Medical History Past Medical History: Fibromyalgia, GERD/Reflux, Sleep Apnea/CPAP/BIPAP Additional Past Medical History / Comment(s): no cpap used, carpal tunnel [place] wrists History of Any Multi-Drug Resistant Organisms: None Reported Past Surgical History: Section, Orthopedic Surgery Additional Past Surgical History / Comment(s): tendon surgery left foot Past Anesthesia/Blood Transfusion Reactions: No Reported Reaction Past Psychological History: ADD/ADHD, Anxiety, Bipolar, Depression Smoking Status: Former smoker, Vaper Past Alcohol Use History: Rare Past Drug Use History: None Reported - Past Family History Mother Family Medical History: No Reported History General Exam Limitations: no limitations General appearance: alert, in no apparent distress Head exam: Present: atraumatic, normocephalic, normal inspection Eye exam: Present: normal appearance, EOMI Neck exam: Present: normal inspection. Absent: meningismus Respiratory exam: Absent: respiratory distress Cardiovascular Exam: Present: regular rate Extremities exam: Present: normal inspection, full ROM, normal capillary refill Neurological exam: Present: alert Psychiatric exam: Present: normal affect, normal mood Skin exam: Present: warm, dry Course Vital Signs 10/23/24 10/23/24 22:09 23:12 Temperature 98.3 F Pulse Rate 85 85 Respiratory 18 18 Rate Blood Pressure 142/86 140/87 O2 Sat by Pulse 99 98 Oximetry Medical Decision Making - Medical Decision Making Was pt. sent in by a medical professional or institution (, PA, IV RN, urgent care, hospital, or skilled nursing...) When possible be specific @ -No Did you speak to anyone other than the patient for history (EMS, parent, family, police, friend...)? What history was obtained from this source @ -No Did you review nursing and triage notes (agree or disagree)? Why? @ -I reviewed and agree with nursing and triage notes Were old charts reviewed (outside hosp., previous admission, EMS record, old EKG, old radiological studies, urgent care reports/EKG's, skilled nursing records)? Report findings @ -No old charts were reviewed Differential Diagnosis (chest pain, altered mental status, abdominal pain women, abdominal pain men, vaginal bleeding, weakness, fever, dyspnea, syncope, headache, dizziness, GI bleed, back pain, seizure, CVA, palpatations, mental health, musculoskeletal)? @ -Differential Musculoskeletal Muscular strain, contusion, ligament sprain, fracture, arthritis, septic arthritis, bursitis, cellulitis, muscle spasm, nerve compression, DVT, arterial occlusion, herpes zoster, electrolyte abnormality, tumor.... This is not meant to be in all inclusive list EKG interpreted by me (3pts min.). @ -As above X-rays interpreted by me (1pt min.). @ -None done CT interpreted by me (1pt min.). @ -None done U/S interpreted by me (1pt. min.). @ -None done What testing was considered but not performed or refused? (CT, X-rays, U/S, labs)? Why? @ -None What meds were considered but not given or refused? Why? @ -None Did you discuss the management of the patient with other professionals (professionals i.e. , PA, IV RN, lab, RT, psych nurse, social media job titles, quality systems manager, teacher, public information officer, counter caser)? Give summary @ -No Was smoking cessation discussed for >3mins.? @ -No Was critical care preformed (if so, how long)? @ -No Were there social determinants of health that impacted care today? How? (Homelessness, low income, unemployed, alcoholism, drug addiction, transportation, low edu. Level, literacy, decrease access to med. care, usp, rehab)? @ -No Was there de-escalation of care discussed even if they declined (Discuss DNR or withdrawal of care, Hospice)? DNR status @ -No What co-morbidities impacted this encounter? (DM, HTN, Smoking, COPD, CAD, Cancer, CVA, ARF, Chemo, Hep., AIDS, mental health diagnosis, sleep apnea, morbid obesity)? @ -None Was patient admitted / discharged? Hospital course, mention meds given and route, prescriptions, significant lab abnormalities, going to OR and other pertinent info. @ -33-year-old female presenting with chief complaint of carpal tunnel pain. This is in the bilateral hands. No injury or trauma. Feels like pain she has had in the past. History and physical examination are conducted. Patient is treated with pain medication that has worked for her in the past. Sent home on Medrol Dosepak. Follow-up with PCP and orthopedics. Follow-up with PCP. Report back to ER with any new or worsening symptoms. Discussed return parameters and answered all questions. Patient conveyed verbal understanding and agreed to the plan. My attending is Dr. Pizano Undiagnosed new problem with uncertain prognosis? @ -No Drug Therapy requiring intensive monitoring for toxicity (Heparin, Nitro, Insulin, Cardizem)? @ -No Were any procedures done? @ -No Diagnosis/symptom? @ -Carpal tunnel Acute, or Chronic, or Acute on Chronic? @ -Acute on chronic Uncomplicated (without systemic symptoms) or Complicated (systemic symptoms)? @ -Uncomplicated Side effects of treatment? @ -No Exacerbation, Progression, or Severe Exacerbation? @ -No Poses a threat to life or bodily function? How? (Chest pain, [place], [place], pneumonia, PE, COPD, DKA, ARF, appy, cholecystitis, CVA, Diverticulitis, Homicidal, Suicidal, threat to staff... and all critical care pts) @ -No Disposition Clinical Impression: Carpal tunnel syndrome Disposition: HOME SELF-CARE Condition: Good Additional Instructions: Follow-up with PCP and orthopedics. Report back to ER with any new or worsening symptoms. Take medication as prescribed. Take Motrin and Tylenol as needed. Prescriptions: methylPREDNISolone Dose Pack [Medrol Dose Pack] 4 mg PO DIRECTED #21 tab Is patient prescribed a controlled substance at d/c from ED?: No Referrals: Jose Marcos MD [Primary Care Provider] - 1-2 days Time of Disposition: 22:26
[2024-10-23] MEDS: KETOROLAC 15 MG/ML 1 ML VIAL IM STA (22:53)
[2024-10-23] MEDS: methylPREDNISolone SOD SUCCI 125 MG/2 ML VIAL IM ONE (22:53)
[2024-10-23] MEDS: HYDROmorphone 0.5 MG/0.5 ML SYRINGE IM STA (22:53)
[2024-10-23 23:13] VITALS: BP 140/87
== END 2024-10-23 23:13 | disposition home or self-care (01) ==
LOC: EC 22:08
DX: G56.03 Carpal tunnel syndrome, bilateral upper limbs (principal); F17.290 Nicotine dependence, other tobacco product, uncomplicated; Z88.0 Allergy status to penicillin
CPT/HCPCS: 99283; 96372 ×3; J1885; J1171; J2919

== ENCOUNTER 2025-02-11 17:02 | Emergency (ER) | payer OTHER ==
--- NOTE | 2025-02-11 18:28 | ED ---
General Adult HPI - General Source: patient, RN notes reviewed Mode of arrival: ambulatory Limitations: no limitations <Alyssa Carlton - Last Filed: 02/11/25 18:27> - General Source: patient, RN notes reviewed Mode of arrival: ambulatory Limitations: no limitations <Mimi Cunningham - Last Filed: 02/11/25 23:42> - General Chief complaint: Nausea/Vomiting/Diarrhea Stated complaint: bilateral hand pain, vomiting Time Seen by Provider: 02/11/25 18:27 - History of Present Illness Initial comments: Quick [id number] female with history of carpal tunnel presenting for left wrist pain. States she believes she is having a flareup of her carpal tunnel. Denies any new injury or trauma. (Alyssa Carlton) This is a 34-year-old female who presents to the emergency department for bilateral wrist pain, nausea, and vomiting. She has bilateral carpal tunnel, with the left wrist being worse than the right. States that the pain has been flaring up on her over the last couple of days, causing her to vomit. She does take Percocet for pain, however it has not been effective and she is not able to keep all of it down due to the vomiting. She will be following up with her PCP in a couple of days and will hopefully get a referral to orthopedics at that point to discuss surgery. (Mimi Cunningham) - Related Data Home Medications Medication Instructions Recorded Confirmed Acetaminophen [Tylenol Extra 500 mg PO DIRECTED 04/16/22 04/16/22 Strength] Famotidine 20 mg PO BID 04/16/22 04/16/22 Pnv,Calcium 72/Iron/Folic Acid 1 each PO DAILY 04/16/22 04/16/22 [Westab Plus Tablet] Previous Rx's Medication Instructions Recorded Phenazopyridine HCl 200 mg PO TID PRN #6 tab 04/04/24 Doxycycline [Vibramycin] 100 mg PO BID #28 capsule 04/07/24 Ondansetron Odt [Zofran Odt] 4 mg PO Q8HR PRN #10 tab 04/07/24 metroNIDAZOLE [Flagyl] 500 mg PO BID 14 Days #28 tab 04/07/24 Cyclobenzaprine [Flexeril] 5 - 10 mg PO TID PRN #30 tablet 07/07/24 Ketorolac [Toradol] 10 mg PO Q6HR PRN #15 tab 04/18/24 Ondansetron Odt [Zofran Odt] 4 mg PO Q8HR PRN #15 tab 04/18/24 Meloxicam [Mobic] 15 mg PO DAILY #30 tab 08/28/24 predniSONE 50 mg PO DAILY 5 Days #5 tablet 08/28/24 Famotidine [Pepcid] 20 mg PO BID #30 tablet 09/04/24 methylPREDNISolone Dose Pack 4 mg PO DIRECTED #21 tab 09/04/24 [Medrol Dose Pack] methylPREDNISolone Dose Pack 4 mg PO DIRECTED #21 tab 10/23/24 [Medrol Dose Pack] Ondansetron Odt [Zofran Odt] 4 mg PO Q8HR PRN #20 tab 02/11/25 Prochlorperazine [Compazine] 10 mg PO Q6H PRN #20 tab 02/11/25 predniSONE 50 mg PO DAILY 5 Days #5 tab 02/11/25 Allergies Allergy/AdvReac Type Severity Reaction Status Date / Time amoxicillin Allergy Unknown Verified 10/23/24 22:12 Review of Systems ROS Other: All systems not noted in ROS Statement are negative. <Alyssa Carlton - Last Filed: 02/11/25 18:27> ROS Other: All systems not noted in ROS Statement are negative. <Mimi Cunningham - Last Filed: 02/11/25 23:42> ROS Statement: Those systems with pertinent positive or pertinent negative responses have been documented in the HPI. Past Medical History Past Medical History: Fibromyalgia, GERD/Reflux, Sleep Apnea/CPAP/BIPAP Additional Past Medical History / Comment(s): no cpap used, carpal tunnel [place] wrists History of Any Multi-Drug Resistant Organisms: None Reported Past Surgical History: Section, Orthopedic Surgery Additional Past Surgical History / Comment(s): tendon surgery left foot Past Anesthesia/Blood Transfusion Reactions: No Reported Reaction Past Psychological History: ADD/ADHD, Anxiety, Bipolar, Depression Smoking Status: Former smoker, Vaper Past Alcohol Use History: Rare Past Drug Use History: None Reported - Past Family History Mother Family Medical History: No Reported History <Alyssa Carlton - Last Filed: 02/11/25 18:27> General Exam Limitations: no limitations <Alyssa Carlton - Last Filed: 02/11/25 18:27> Limitations: no limitations General appearance: alert, in no apparent distress Respiratory exam: Present: normal lung sounds bilaterally. Absent: respiratory distress, wheezes, rales, rhonchi, stridor Cardiovascular Exam: Present: regular rate, normal rhythm GI/Abdominal exam: Present: soft, normal bowel sounds. Absent: distended, tenderness, guarding, rebound, rigid Extremities exam: Present: other (No swelling or deformities of the left wrist. 2+ radial pulses) Neurological exam: Present: alert, oriented X3, CN II-XII intact Psychiatric exam: Present: normal affect, normal mood Skin exam: Present: warm, dry, intact, normal color. Absent: rash <Mimi Cunningham - Last Filed: 02/11/25 23:42> - General Exam Comments Initial Comments: Visual Physical Exam Vital signs reviewed General: Well-appearing, nontoxic, no acute distress. Head: Normocephalic, atraumatic Eyes: PERRLA, EOMI ENT: Airway patent Chest: Nonlabored breathing Skin: No visual rash, normal skin tone Neuro: Alert and oriented 3 Musculoskeletal: No gross abnormalities (Alyssa Carlton) Course Vital Signs 02/11/25 02/11/25 02/11/25 17:08 19:50 21:37 Temperature 97.8 F 98.6 F Pulse Rate 68 74 76 Respiratory 18 18 16 Rate Blood Pressure 145/94 139/100 150/93 O2 Sat by Pulse 98 100 99 Oximetry Medical Decision Making <Alyssa Carlton - Last Filed: 02/11/25 18:27> - Lab Data Result diagrams: 02/11/25 19:12 02/11/25 19:12 - Radiology Data Radiology results: report reviewed, image reviewed <Mimi Cunningham - Last Filed: 02/11/25 23:42> - Medical Decision Making I completed the quick note portion of this chart signed Alyssa Carlton PA-C (Alyssa Carlton) This is a 34-year-old female who presents to the emergency department for wrist pain, nausea, and vomiting. Was pt. sent in by a medical professional or institution? @ -No Did you speak to anyone other than the patient for history? @ -No Did you review nursing and triage notes? @ -Yes, and I agree, it is accurate with regards to the patient's symptoms. Were old charts reviewed? @ -No Differential Diagnosis? @ -Differential Musculoskeletal Muscular strain, contusion, ligament sprain, fracture, arthritis, septic arthritis, bursitis, cellulitis, muscle spasm, nerve compression, DVT, arterial occlusion, herpes zoster, electrolyte abnormality, tumor.... This is not meant to be in all inclusive list EKG interpreted by me (3pts min.)? @ -Not obtained X-rays interpreted by me (1pt min.)? @ -X-ray of the left wrist obtained. My interpretation identifies no acute fractures. CT interpreted by me (1pt min.)? @ -Not obtained U/S interpreted by me (1pt. min.)? @ -Not obtained What testing was considered but not performed? (CT, X-rays, U/S, labs)? Why? @ -None What meds were considered but not given? Why? @ -None Did you discuss the management of the patient with other professionals? @ -No Did you reconcile home meds? @ -No Was smoking cessation discussed for >3mins.? @ -No Was critical care preformed (if so, how long)? @ -No Were there social determinants of health that impacted care today? How? ([place] elessness, low income, unemployed, alcoholism, drug addiction, transportation, low edu. Level, literacy, decrease access to med. care, [facility], rehab)? @ -No Was there de-escalation of care discussed even if they declined? (Discuss DNR or withdrawal of care, Hospice)? @ -No What co-morbidities impacted this encounter? (DM, HTN, Smoking, COPD, CAD, C ancer, CVA, Hep., AIDS, mental health diagnosis, sleep apnea, morbid obesity)? @ -Fibromyalgia Was patient admitted / discharged? @ -Discharged. Lab work unremarkable. X-ray of the left wrist obtained revealing no acute process. Symptoms well-controlled in the emergency department. She has been on steroids before for carpal tunnel flareups and states that they are typically effective. Prescription for 5-day course of prednisone provided with dosing instructions reviewed along with Zofran and Compazine for any additional nausea/vomiting. Advised follow-up with her PCP for reevaluation and discussion of an orthopedic referral. Patient discharged home in stable condition. Case discussed with ED attending Dr. Pizano. Return precautions reviewed in depth, the patient is instructed to return to the emergency department with any new, worsening, or concerning symptoms. Patient verbalized understanding. Undiagnosed new problem with uncertain prognosis? @ -None Drug Therapy requiring intensive monitoring for toxicity (Heparin, Nitro, Insulin, Cardizem)? @ -None Were any procedures done? @ -None Diagnosis/symptom? @ -Nausea and vomiting, left wrist pain Acute, or Chronic, or Acute on Chronic? @ -Acute Uncomplicated (without systemic symptoms) or Complicated (systemic symptoms)? @ -Uncomplicated Side effects of treatment? @ -None Exacerbation, Progression, or Severe Exacerbation] @ -Not applicable Poses a threat to life or bodily function? @ -No (Mimi Cunningham) - Lab Data Lab Results 02/11/25 02/11/25 Range/Units 19:12 19:12 WBC 3.99 L (4.50-10.00) 10*3/uL RBC 4.24 (4.10-5.20) 10*6/uL Hgb 12.6 (12.0-15.0) g/dL Hct 35.3 L (37.2-46.3) % MCV 83.3 (80.0-97.0) fL MCH 29.7 (27.0-32.0) pg MCHC 35.7 (32.0-37.0) g/dL Plt Count 328 (140-440) 10*3/uL MPV 8.8 L (9.5-12.2) fL Immature Gran % (Auto) 0 % Neutrophils % 31.0 % Lymphocytes % 56.9 % Monocytes % 9.0 % Eosinophils % 2.3 % Basophils % 0.8 % Immature Gran # 0.00 (0.00-0.04) 10*3/uL Neutrophils # 1.24 L (1.80-7.70) 10*3/uL Lymphocytes # 2.27 (0.90-5.00) 10*3/uL Monocytes # 0.36 (0.20-1.00) 10*3/uL Eosinophils # 0.09 (0.04-0.35) 10*3/uL Basophils # 0.03 (0.00-0.10) 10*3/uL Sodium 137 (137-145) mmol/L Potassium 4.6 (3.5-5.1) mmol/L Chloride 102 (98-107) mmol/L Carbon Dioxide 23 (22-30) mmol/L Anion Gap 12 mmol/L BUN 13 (7-17) mg/dL Creatinine 0.61 (0.52-1.04) mg/dL Est GFR (CKD-EPI)AfAm >90 (>60 ml/min/1.73 sqM) Est GFR (CKD-EPI)NonAf >90 (>60 ml/min/1.73 sqM) Glucose 86 (74-99) mg/dL Calcium 10.3 H (8.4-10.2) mg/dL Total Bilirubin 0.7 (0.2-1.3) mg/dL AST 23 (14-36) U/L ALT 19 (4-34) U/L Alkaline Phosphatase 39 (38-126) U/L Total Protein 6.9 (6.3-8.2) g/dL Albumin 4.5 (3.5-5.0) g/dL HCG, Qual Not Detected Disposition <Alyssa Carlton - Last Filed: 02/11/25 18:27> Is patient prescribed a controlled substance at d/c from ED?: No Time of Disposition: 21:23 <Mimi Cunningham - Last Filed: 02/11/25 23:42> Clinical Impression: Nausea and vomiting, Carpal tunnel syndrome on both sides Disposition: HOME SELF-CARE Instructions (If sedation given, give patient instructions): Acute Nausea and Vomiting (ED) Additional Instructions: Return to the emergency department with any new, worsening, or concerning symptoms. Take the prednisone daily for 5 days. You can take the Zofran up to every 8 hours and the Compazine up to every 6 hours as needed for nausea and vomiting. Follow up with your primary care provider in 1-2 days. Prescriptions: Prochlorperazine [Compazine] 10 mg PO Q6H PRN #20 tab PRN Reason: Nausea And Vomiting predniSONE 50 mg PO DAILY 5 Days #5 tab Ondansetron Odt [Zofran Odt] 4 mg PO Q8HR PRN #20 tab PRN Reason: Nausea And Vomiting Referrals: Jose Marcos MD [Primary Care Provider] - 1-2 days
--- NOTE | 2025-02-11 19:18 | XR ---
EXAMINATION TYPE: XR wrist complete LT DATE OF EXAM: 02/11/2025 6:48 PM COMPARISON: None CLINICAL INDICATION: Female, 34 years old with history of left wrist pain; PHH, pain TECHNIQUE: XR wrist complete LT; examined in the Frontal, navicular, lateral, and oblique. FINDINGS: No acute osseous pathology, joint dislocation, or joint effusion. No evidence of any soft tissue swelling is seen. IMPRESSION: No acute osseous pathology. [facility], , 02/11/2025 7:16 PM
[2025-02-11 19:19] LABS: Basophils # (A) 0.03 10*3/uL (0.00-0.10); Basophils % (A) 0.8 %; Eosinophils # (A) 0.09 10*3/uL (0.04-0.35); Eosinophils % (A) 2.3 %; HCT 35.3 % (37.2-46.3); HGB 12.6 g/dL (12.0-15.0); Lymphocytes # (A) 2.27 10*3/uL (0.90-5.00); Lymphocytes % (A) 56.9 %; MCH 29.7 pg (27.0-32.0); MCHC 35.7 g/dL (32.0-37.0); MCV 83.3 fL (80.0-97.0); Mean Platelet Volume 8.8 fL (9.5-12.2); Monocytes # (A) 0.36 10*3/uL (0.20-1.00); Neutrophils # (A) 1.24 10*3/uL (1.80-7.70); Platelet Count 328 10*3/uL (140-440); RBC 4.24 10*6/uL (4.10-5.20); RDW 11.9 % (11.5-14.5); WBC 3.99 10*3/uL (4.50-10.00)
[2025-02-11 19:35] LABS: ALT 19 U/L (4-34); AST 23 U/L (14-36); African American GFR (CKD) >90 (>60 ml/min/1.73 sqM); Albumin 4.5 g/dL (3.5-5.0); Alkaline Phosphatase 39 U/L (38-126); Anion Gap 12 mmol/L; Blood Urea Nitrogen 13 mg/dL (7-17); Calcium 10.3 mg/dL (8.4-10.2); Carbon Dioxide 23 mmol/L (22-30); Chloride 102 mmol/L (98-107); Glucose 86 mg/dL (74-99); Non-African American GFR(CKD) >90 (>60 ml/min/1.73 sqM); Potassium 4.6 mmol/L (3.5-5.1); Sodium 137 mmol/L (137-145); Total Bilirubin 0.7 mg/dL (0.2-1.3); Total Protein 6.9 g/dL (6.3-8.2)
[2025-02-11 19:48] LABS: HCG,Qualitative Serum Not Detected
[2025-02-11] MEDS: SODIUM CHLORIDE 0.9% 1,000 ML IV ONE (19:50)
[2025-02-11] MEDS: KETOROLAC 15 MG/ML 1 ML VIAL IVP STA ×2 (19:51→20:52)
[2025-02-11] MEDS: HYDROmorphone 1 MG/ML 1 ML SYRINGE IVP STA ×2 (19:53→20:54)
[2025-02-11] MEDS: DEXAMETHASONE SOD PHOSPHATE 10 MG/ML 1 ML VIAL IVP STA (19:54)
[2025-02-11] MEDS: PROCHLORPERAZINE INJ 10 MG/2 ML VIAL IVP STA (20:56)
[2025-02-11] MEDS: ONDANSETRON 4 MG ODT STARTER PACK 2 TAB BTL PO STA (21:32)
[2025-02-11 21:39] VITALS: BP 150/93; PULSE 76; RESP 16; TEMP 98.6
== END 2025-02-11 21:37 | disposition home or self-care (01) ==
LOC: EC 17:02
DX: G56.03 Carpal tunnel syndrome, bilateral upper limbs (principal); R11.2 Nausea with vomiting, unspecified; M79.7 Fibromyalgia; F17.290 Nicotine dependence, other tobacco product, uncomplicated; Z88.0 Allergy status to penicillin
CPT/HCPCS: 36415; 80053; 85025; 84703; 73110; 99284; 96374; 96375; 96376 ×2; 96361 ×2; J0780; J1100; J1171; J1885; S0119

== ENCOUNTER 2025-03-14 21:09 | Emergency (ER) | payer OTHER ==
[2025-03-14] MEDS: ONDANSETRON 4 MG/2 ML VIAL IVP STA (23:28)
[2025-03-14] MEDS: MORPHINE SULFATE 4 MG/ML SYRINGE IV STA (23:29)
[2025-03-14] MEDS: SODIUM CHLORIDE 0.9% 500 ML 500 ML IV STA (23:33)
[2025-03-14 23:44] LABS: Basophils # (A) 0.05 10*3/uL (0.00-0.10); Basophils % (A) 0.9 %; Eosinophils # (A) 0.01 10*3/uL (0.04-0.35); Eosinophils % (A) 0.2 %; HCT 35.4 % (37.2-46.3); HGB 12.5 g/dL (12.0-15.0); Lymphocytes # (A) 2.05 10*3/uL (0.90-5.00); Lymphocytes % (A) 37.1 %; MCHC 35.3 g/dL (32.0-37.0); MCV 82.1 fL (80.0-97.0); Mean Platelet Volume 8.7 fL (9.5-12.2); Monocytes # (A) 0.38 10*3/uL (0.20-1.00); Monocytes % (A) 6.9 %; Neutrophils # (A) 3.03 10*3/uL (1.80-7.70); Neutrophils % (A) 54.7 %; Platelet Count 419 10*3/uL (140-440); RBC 4.31 10*6/uL (4.10-5.20); RDW 11.9 % (11.5-14.5); WBC 5.53 10*3/uL (4.50-10.00)
[2025-03-15] MEDS: METOCLOPRAMIDE 5 MG/ML 2 ML VIAL IVP STA (00:23)
[2025-03-15] MEDS: MORPHINE SULFATE 4 MG/ML SYRINGE IV STA (00:23)
[2025-03-15] MEDS: SODIUM CHLORIDE 0.9% 1,000 ML IV ONE (00:26)
[2025-03-15 00:31] LABS: ALT 21 U/L (4-34); AST 24 U/L (14-36); African American GFR (CKD) >90 (>60 ml/min/1.73 sqM); Albumin 4.5 g/dL (3.5-5.0); Alkaline Phosphatase 41 U/L (38-126); Amylase 42 U/L (30-110); Anion Gap 10 mmol/L; Blood Urea Nitrogen 10 mg/dL (7-17); Calcium 10.2 mg/dL (8.4-10.2); Carbon Dioxide 25 mmol/L (22-30); Chloride 102 mmol/L (98-107); Glucose 94 mg/dL (74-99); Lipase 328 U/L (23-300); Non-African American GFR(CKD) >90 (>60 ml/min/1.73 sqM); Potassium 3.8 mmol/L (3.5-5.1); Sodium 137 mmol/L (137-145)
[2025-03-15 00:51] LABS: Appearance,Urine Cloudy (Clear); Bacteria,Urine Many /hpf; Bilirubin,Urine Negative (Negative); Blood,Urine Negative (Negative); Color,Urine Yellow; Glucose,Urine (UA) Negative (Negative); Ketones,Urine 2+ (Negative); Leukocyte Esterase,Urine Negative (Negative); Mucus,Urine Few /hpf; Nitrite,Urine Negative (Negative); PH, Urine 5.5 (5.0-8.0); Protein,Urine Negative (Negative); RBC,Urine 1 /hpf (0-5); Specific Gravity,Urine 1.022 (1.001-1.035); Squamous Epithelial Cell,Urine 7 /hpf (0-4); Urobilinogen,Urine <2.0 mg/dL (<2.0); WBC,Urine 13 /hpf (0-5)
[2025-03-15 02:31] VITALS: BP 130/84; PULSE 81; RESP 16; TEMP 98.6
--- NOTE | 2025-03-15 02:34 | ED ---
Nausea/Vomiting/Diarrhea HPI - General Chief complaint: Nausea/Vomiting/Diarrhea Stated complaint: vomiting Time Seen by Provider: 03/14/25 22:31 Source: patient Mode of arrival: ambulatory Limitations: no limitations - History of Present Illness Initial comments: This patient is a 34-year-old woman who arrives to evaluation of nausea, vomiting, and lower abdominal pain that is going into the second day now. The patient states that she did have some leftover antiemetics and tried using those without relief. When the symptoms continued into today she felt she should have evaluation. The patient has not noted any bloody or coffee-ground emesis. MD complaint: nausea, vomiting, abdominal pain Onset/Timin -: days(s) Description of Vomiting: food contents, bilious Associated Abdominal Pain: Yes Location: LLQ, RLQ Radiation: none Severity: moderate Quality: cramping Consistency: intermittent Improves with: none Worsens with: none Associated Symptoms: denies other symptoms - Related Data Home Medications Medication Instructions Recorded Confirmed Acetaminophen [Tylenol Extra 500 mg PO DIRECTED 04/16/22 04/16/22 Strength] Famotidine 20 mg PO BID 04/16/22 04/16/22 Pnv,Calcium 72/Iron/Folic Acid 1 each PO DAILY 04/16/22 04/16/22 [[place] Plus Tablet] Previous Rx's Medication Instructions Recorded Phenazopyridine HCl 200 mg PO TID PRN #6 tab 04/04/24 Doxycycline [Vibramycin] 100 mg PO BID #28 capsule 04/07/24 Ondansetron Odt [Zofran Odt] 4 mg PO Q8HR PRN #10 tab 04/07/24 metroNIDAZOLE [Flagyl] 500 mg PO BID 14 Days #28 tab 04/07/24 Cyclobenzaprine [Flexeril] 5 - 10 mg PO TID PRN #30 tablet 04/18/24 Ketorolac [Toradol] 10 mg PO Q6HR PRN #15 tab 04/18/24 Ondansetron Odt [Zofran Odt] 4 mg PO Q8HR PRN #15 tab 04/18/24 Meloxicam [Mobic] 15 mg PO DAILY #30 tab 08/28/24 predniSONE 50 mg PO DAILY 5 Days #5 tablet 08/28/24 Famotidine [Pepcid] 20 mg PO BID #30 tablet 09/04/24 methylPREDNISolone Dose Pack 4 mg PO DIRECTED #21 tab 09/04/24 [Medrol Dose Pack] methylPREDNISolone Dose Pack 4 mg PO DIRECTED #21 tab 10/23/24 [Medrol Dose Pack] Ondansetron Odt [Zofran Odt] 4 mg PO Q8HR PRN #20 tab 02/11/25 Prochlorperazine [Compazine] 10 mg PO Q6H PRN #20 tab 02/11/25 predniSONE 50 mg PO DAILY 5 Days #5 tab 02/11/25 Ondansetron Odt [Zofran Odt] 4 mg PO Q8HR PRN #20 tab 03/13/25 Metoclopramide [Reglan] 10 mg PO Q6H PRN #12 tab 03/15/25 Metoclopramide [Reglan] 10 mg PO TID PRN #15 tab 03/18/25 Allergies Allergy/AdvReac Type Severity Reaction Status Date / Time amoxicillin Allergy Unknown Verified 03/17/25 21:01 Review of Systems ROS Statement: Those systems with pertinent positive or pertinent negative responses have been documented in the HPI. ROS Other: All systems not noted in ROS Statement are negative. Constitutional: Denies: fever, chills, weakness Respiratory: Denies: cough, dyspnea Cardiovascular: Denies: chest pain, palpitations, edema Gastrointestinal: Reports: abdominal pain, nausea, vomiting, constipation. Denies: diarrhea, melena, hematochezia Genitourinary: Denies: dysuria, hematuria, abnormal menses Musculoskeletal: Denies: back pain Skin: Denies: rash Neurological: Denies: headache, weakness, numbness Past Medical History Past Medical History: Fibromyalgia, GERD/Reflux, Sleep Apnea/CPAP/BIPAP Additional Past Medical History / Comment(s): no cpap used, carpal tunnel [place] wrists History of Any Multi-Drug Resistant Organisms: None Reported Past Surgical History: Section, Orthopedic Surgery Additional Past Surgical History / Comment(s): tendon surgery left foot Past Anesthesia/Blood Transfusion Reactions: No Reported Reaction Past Psychological History: ADD/ADHD, Anxiety, Bipolar, Depression, PTSD Smoking Status: Former smoker, Vaper Past Alcohol Use History: Rare Past Drug Use History: None Reported - Past Family History Mother Family Medical History: No Reported History General Exam Limitations: no limitations General appearance: alert, in no apparent distress Head exam: Present: atraumatic, normocephalic Eye exam: Present: normal appearance. Absent: scleral icterus, conjunctival inj ection Neck exam: Present: normal inspection Respiratory exam: Present: normal lung sounds bilaterally. Absent: respiratory distress, wheezes, rales, rhonchi, stridor, accessory muscle use Cardiovascular Exam: Present: regular rate, normal rhythm, normal heart sounds. Absent: systolic murmur, diastolic murmur, rubs, gallop GI/Abdominal exam: Present: soft. Absent: distended, tenderness, guarding, rebound, rigid, mass, pulsatile mass, hernia Extremities exam: Present: normal inspection, normal capillary refill. Absent: pedal edema, calf tenderness Back exam: Present: normal inspection. Absent: CVA tenderness (R), CVA tenderness (L) Neurological exam: Present: alert Skin exam: Present: warm, dry, intact, normal color. Absent: rash Course Vital Signs 03/14/25 03/15/25 21:14 02:31 Temperature 98.7 F 98.6 F Pulse Rate 85 81 Respiratory 18 16 Rate Blood Pressure 147/81 130/84 O2 Sat by Pulse 99 98 Oximetry Medical Decision Making - Medical Decision Making Was pt. sent in by a medical professional or institution (, PA, FORCE DISPATCHER, urgent care, hospital, or fpc...) When possible be specific @ -[No] Did you speak to anyone other than the patient for history (EMS, parent, family, police, friend...)? What history was obtained from this source @ -[No] Did you review nursing and triage notes (agree or disagree)? Why? @ -[I reviewed and agree with nursing and triage notes] Were old charts reviewed (outside hosp., previous admission, EMS record, old E KG, old radiological studies, urgent care reports/EKG's, fpc records)? Report findings @ -[No old charts were reviewed] Differential Diagnosis (chest pain, altered mental status, abdominal pain women, abdominal pain men, vaginal bleeding, weakness, fever, dyspnea, syncope, headache, dizziness, GI bleed, back pain, seizure, CVA, palpatations, mental health, musculoskeletal)? @ -[Differential Abdominal Pain Women: Appendicitis, Cholecystitis, diverticulosis, ischemic bowel, pancreatitis, hepatitis, UTI, gastroenteritis, AAA, incarcerated hernia, bowel obstruction, constipation, inflammatory bowel, hepatitis, peptic ulcer disease, splenic infarction, perforated viscus, vulvitis, ovarian torsion, PID, kidney stone, placenta abruption, this is not meant to be an all-inclusive list EKG interpreted by me (3pts min.). @ -[As above] X-rays interpreted by me (1pt min.). @ -[None done] CT interpreted by me (1pt min.). @ -[None done] U/S interpreted by me (1pt. min.). @ -[None done] What testing was considered but not performed or refused? (CT, X-rays, U/S, labs)? Why? @ -[None] What meds were considered but not given or refused? Why? @ -[None] Did you discuss the management of the patient with other professionals (professionals i.e. , PA, FORCE DISPATCHER, lab, RT, psych nurse, social media executive, rewards consultant, teacher, ground nuclear weapons assembly officer, dependency case manager)? Give summary @ -[No] Was smoking cessation discussed for >3mins.? @ -[No] Was critical care preformed (if so, how long)? @ -[No] Were there social determinants of health that impacted care today? How? (Homelessness, low income, unemployed, alcoholism, drug addiction, transportation, low edu. Level, literacy, decrease access to med. care, [facility], rehab)? @ -[No] Was there de-escalation of care discussed even if they declined (Discuss DNR or withdrawal of care, Hospice)? DNR status @ -[No] What co-morbidities impacted this encounter? (DM, HTN, Smoking, COPD, CAD, Cancer, CVA, ARF, Chemo, Hep., AIDS, mental health diagnosis, sleep apnea, morbid obesity)? @ -[None] Was patient admitted / discharged? Hospital course, mention meds given and route, prescriptions, significant lab abnormalities, going to OR and other pertinent info. @ -[Patient is a 34-year-old woman here to have evaluation of nausea and vomiting. The patient's history and physical exam not concerning for acute surgical condition. She did have improvement with treatment, was feeling better and stable to continue as outpatient. Discussed appropriate further care and follow-up as well as return parameters Undiagnosed new problem with uncertain prognosis? @ -[No] Drug Therapy requiring intensive monitoring for toxicity (Heparin, Nitro, Insulin, Cardizem)? @ -[No] Were any procedures done? @ -[No] Diagnosis/symptom? @ -[Acute nausea and vomiting Acute, or Chronic, or Acute on Chronic? @ -[Acute Uncomplicated (without systemic symptoms) or Complicated (systemic symptoms)? @ -[Uncomplicated Side effects of treatment? @ -[No] Exacerbation, Progression, or Severe Exacerbation? @ -[No] Poses a threat to life or bodily function? How? (Chest pain, [place], NC, pneumonia, PE, COPD, DKA, ARF, appy, cholecystitis, CVA, Diverticulitis, Homicidal, Suicidal, threat to staff... and all critical care pts) @ -[No] All treatments are based on ideal body weight as in ED triage - Lab Data Result diagrams: 03/14/25 23:30 03/14/25 23:30 Lab Results 03/14/25 03/14/25 03/15/25 Range/Units 23:30 23:30 00:28 WBC 5.53 (4.50-10.00) 10*3/uL RBC 4.31 (4.10-5.20) 10*6/uL Hgb 12.5 (12.0-15.0) g/dL Hct 35.4 L (37.2-46.3) % MCV 82.1 (80.0-97.0) fL MCH 29.0 (27.0-32.0) pg MCHC 35.3 (32.0-37.0) g/dL Plt Count 419 (140-440) 10*3/uL MPV 8.7 L (9.5-12.2) fL Immature Gran % (Auto) 0.2 % Neutrophils % 54.7 % Lymphocytes % 37.1 % Monocytes % 6.9 % Eosinophils % 0.2 % Basophils % 0.9 % Immature Gran # 0.01 (0.00-0.04) 10*3/uL Neutrophils # 3.03 (1.80-7.70) 10*3/uL Lymphocytes # 2.05 (0.90-5.00) 10*3/uL Monocytes # 0.38 (0.20-1.00) 10*3/uL Eosinophils # 0.01 L (0.04-0.35) 10*3/uL Basophils # 0.05 (0.00-0.10) 10*3/uL Sodium 137 (137-145) mmol/L Potassium 3.8 (3.5-5.1) mmol/L Chloride 102 (98-107) mmol/L Carbon Dioxide 25 (22-30) mmol/L Anion Gap 10 mmol/L BUN 10 (7-17) mg/dL Creatinine 0.67 (0.52-1.04) mg/dL Est GFR (CKD-EPI)AfAm >90 (>60 ml/min/1.73 sqM) Est GFR (CKD-EPI)NonAf >90 (>60 ml/min/1.73 sqM) Glucose 94 (74-99) mg/dL Calcium 10.2 (8.4-10.2) mg/dL Total Bilirubin 1.0 (0.2-1.3) mg/dL AST 24 (14-36) U/L ALT 21 (4-34) U/L Alkaline Phosphatase 41 (38-126) U/L Total Protein 7.0 (6.3-8.2) g/dL Albumin 4.5 (3.5-5.0) g/dL Amylase 42 (30-110) U/L Lipase 328 H (23-300) U/L Urine Color Yellow Urine Appearance Cloudy H (Clear) Urine pH 5.5 (5.0-8.0) Ur Specific [employer] 1.022 (1.001-1.035) Urine Protein Negative (Negative) Urine Glucose (UA) Negative (Negative) Urine Ketones 2+ H (Negative) Urine Blood Negative (Negative) Urine Nitrite Negative (Negative) Urine Bilirubin Negative (Negative) Urine Urobilinogen <2.0 (<2.0) mg/dL Ur Leukocyte Esterase Negative (Negative) Urine RBC 1 (0-5) /hpf Urine WBC 13 H (0-5) /hpf Ur Squamous Epith Cells 7 H (0-4) /hpf Urine Bacteria Many H (None) /hpf Urine Mucus Few H (None) /hpf Urine HCG, Qual (Not Detectd) 03/15/25 Range/Units 00:28 WBC (4.50-10.00) 10*3/uL RBC (4.10-5.20) 10*6/uL Hgb (12.0-15.0) g/dL Hct (37.2-46.3) % MCV (80.0-97.0) fL MCH (27.0-32.0) pg MCHC (32.0-37.0) g/dL Plt Count (140-440) 10*3/uL MPV (9.5-12.2) fL Immature Gran % (Auto) % Neutrophils % % Lymphocytes % % Monocytes % % Eosinophils % % Basophils % % Immature Gran # (0.00-0.04) 10*3/uL Neutrophils # (1.80-7.70) 10*3/uL Lymphocytes # (0.90-5.00) 10*3/uL Monocytes # (0.20-1.00) 10*3/uL Eosinophils # (0.04-0.35) 10*3/uL Basophils # (0.00-0.10) 10*3/uL Sodium (137-145) mmol/L Potassium (3.5-5.1) mmol/L Chloride (98-107) mmol/L Carbon Dioxide (22-30) mmol/L Anion Gap mmol/L BUN (7-17) mg/dL Creatinine (0.52-1.04) mg/dL Est GFR (CKD-EPI)AfAm (>60 ml/min/1.73 sqM) Est GFR (CKD-EPI)NonAf (>60 ml/min/1.73 sqM) Glucose (74-99) mg/dL Calcium (8.4-10.2) mg/dL Total Bilirubin (0.2-1.3) mg/dL AST (14-36) U/L ALT (4-34) U/L Alkaline Phosphatase (38-126) U/L Total Protein (6.3-8.2) g/dL Albumin (3.5-5.0) g/dL Amylase (30-110) U/L Lipase (23-300) U/L Urine Color Urine Appearance (Clear) Urine pH (5.0-8.0) Ur Specific [employer] (1.001-1.035) Urine Protein (Negative) Urine Glucose (UA) (Negative) Urine Ketones (Negative) Urine Blood (Negative) Urine Nitrite (Negative) Urine Bilirubin (Negative) Urine Urobilinogen (<2.0) mg/dL Ur Leukocyte Esterase (Negative) Urine RBC (0-5) /hpf Urine WBC (0-5) /hpf Ur Squamous Epith Cells (0-4) /hpf Urine Bacteria (None) /hpf Urine Mucus (None) /hpf Urine HCG, Qual Not Detected (Not Detectd) Disposition Clinical Impression: Vomiting Disposition: HOME SELF-CARE Condition: Good Instructions (If sedation given, give patient instructions): Acute Nausea and Vomiting (ED) Prescriptions: Metoclopramide [Reglan] 10 mg PO Q6H PRN #12 tab PRN Reason: Vomiting Is patient prescribed a controlled substance at d/c from ED?: No Referrals: Jose Marcos MD [Primary Care Provider] - 1-2 days
== END 2025-03-15 02:37 | disposition home or self-care (01) ==
LOC: EC 21:09
DX: R11.2 Nausea with vomiting, unspecified (principal); F17.290 Nicotine dependence, other tobacco product, uncomplicated; Z88.0 Allergy status to penicillin
CPT/HCPCS: 36415; 80053; 82150; 83690; 85025; 81001; 81025; 99284; 96374; 96375 ×2; 96361 ×3; 96376; J2270 ×2; J2765; J2405